=== PATIENT | male | born 1950 | race Caucasian/White ===

== ENCOUNTER 2024-12-23 04:37 | Inpatient (IN) | payer MEDICARE, BC, SELFPAY ==
[2024-12-22 23:39] VITALS: BMI 31.8
[2024-12-22 23:40] VITALS: BP 141/78
[2024-12-22 23:48] VITALS: BP 141/78
[2024-12-22 23:56] LABS: Glucose - Point of Care 118 mg/dl (70-99)
[2024-12-23] VITALS (21 sets, daily range): BP systolic 108–151; BP diastolic 60–88; PULSE 81–85; O2SAT 95; BMI 30.7
--- NOTE | 2024-12-23 00:05 | ED.GENMED ---
History of Present Illness
General
Chief Complaint: Blood Sugar Problem
Source: patient
Time Seen by Provider: 12/23/24 00:02
Nursing documentation reviewed up to this point in time: agreed with
History of Present Illness
History of Present Illness:
Note:
CHIEF COMPLAINT(S)
Light-headedness and mild tremors, likely due to low blood sugar.
HISTORY OF PRESENT ILLNESS
The patient is a 74-year-old male with a history of diabetes who presented with complaints of feeling light-headed and experiencing mild tremors. The patient reported not eating as much as usual today, and earlier in the day, experienced diarrhea.
He attributed his symptoms to these factors. The patient did not find any issues with his insulin dosage and confirmed that he is only on oral diabetic medications, specifically glipizide and metformin. The patient also mentioned a significant
weight loss recently, going from 380 pounds to 231 pounds. He noted repeated instances of diarrhea following antibiotic administration intended to clear an infection ahead of an upcoming kidney surgery. He is scheduled to undergo surgery to address
a blockage caused by a hernia affecting one of his kidneys. The patient reported feeling fine at the time of the conversation aside from some residual light-headedness and tremors.
CHRONIC MEDICAL CONDITIONS SIGNIFICANTLY AFFECTING CARE
- Diabetes
- Kidney disorder due to a blockage caused by a hernia that she is due to have surgery in an outside hospital
SOCIAL HISTORY
The patient mentioned being active, as he spends time walking his dogs, which helps him manage leg swelling.
MEDICATIONS
- Glipizide
- Metformin
- Propranolol
- Pravastatin
PHYSICAL EXAM
- Nursing notes reviewed and vital signs reviewed.
PROBLEM LIST
Acute:
- Hypoglycemia with associated light-headedness and tremors
Chronic:
- Diabetes
- Kidney disorder secondary to blockage by hernia
PLAN
- Provide the patient with food, such as a turkey sandwich, to help manage hypoglycemic symptoms.
- Recheck blood sugar in one hour.
- Monitor for any worsening symptoms or new developments.
DIFFERENTIAL DIAGNOSIS
The Differential Diagnosis includes, in no particular order and is not limited to:
- Hypoglycemia
- Dehydration
- Peripheral vascular disease
- Electrolyte imbalance
- Renal impairment
- Medication side effects
- Infection
- Gastrointestinal disturbance
- Anemia
- Cardiac issues
Renal failure
CARE-UPDATE
12/23/24 - 01:40
The anion gap is within the normal range at 12. The BUN is significantly elevated at 94, and creatinine is 7.3, indicating poor renal function. Bicarbonate is low at 14, consistent with possible metabolic acidosis. Potassium is elevated at 5.9,
posing a risk for hyperkalemia-related complications.
Disposition:
SUMMARY OF ENCOUNTER
The 74-year-old male patient was found unresponsive at his apartment, presenting with light-headedness. He received D5 saline en route to the emergency department, which resulted in improved mental status. The patient has significant kidney disease
and is scheduled for surgery at [facility] for a 'blocked kidney due to a hernia'. He expressed uncertainty about the severity of his renal function impairment. A hemoglobin level of 8.0 was noted, suggesting anemia of chronic disease. The plan
is to admit the patient for hydration and management of hyperkalemia.
ASSESSMENT
The patient is suspected to have anemia of chronic disease related to his kidney condition and requires further management for hyperkalemia and hydration.
MANAGEMENT OF THE PATIENTS CARE WAS DISCUSSED WITH
Nephrology was consulted via [employer] to discuss the patients plan of care.
PLAN
The plan involves admitting the patient for hydration and treatment of hyperkalemia.
INDEPENDENT REVIEW OF LABS AND INTERPRETATION OF TESTS
My independent review of the hemoglobin level is 8.0, consistent with likely anemia of chronic disease.
MEDICAL DECISION MAKING
- Number and Complexity of Problems Addressed: Chronic conditions affecting care include diabetes and significant kidney disease. Differential Diagnosis: Hypoglycemia, Dehydration, Peripheral vascular disease, Electrolyte imbalance, Renal
impairment, Medication side effects, Infection, Gastrointestinal disturbance, Anemia, Cardiac issues.
- Data:
Category 1: My independent interpretation of the hemoglobin level indicates anemia of chronic disease.
Category 3: Discussion of management with the nephrology team via [employer].
DIAGNOSIS
Anemia of chronic disease (ICD-10: D63.8), Chronic kidney disease with hyperkalemia (ICD-10: N18.9, E87.5).
Review of Systems
Review of Systems
Allergies reviewed?: Yes
All Other Systems: ROS reviewed and negative except as documented in HPI and ROS
Constitutional: Reports fatigue and sleep disturbance
Cardiac: Reports syncope (possib;e); Denies chest pain
Neurological: Reports dizzy and weakness
Psychiatric: Reports anxiety
Phy Exam
General Physical Exam
General Presentation: well appearing and mild distress
General age: appears older than age
General Skin: warm
General Mental: alert
General Hydration: dry mucous membranes
Cardiovascular Exam
Cardiovascular Exam: regular rate/rhythm
Gastrointestinal Exam
Gastrointestinal Exam: normal bowel sounds and non tender
External Findings: nephrostomy drain
Neurological Exam
Neurological Exam: alert and oriented x3
Musculoskeletal Exam
Musculoskeletal Exam: full ROM
Skin Exam
Skin Exam: normal color and warm/dry
Psychiatric Exam
Psychiatric Exam: normal mood/affect and anxious
Course
Orders/Labs/Results
Orders:
Orders
12/23/24 00:11
Complete Blood Count/With Diff Urgent
Comprehensive Metabolic Panel Urgent
Hemoglobin A1c [Glycohemoglobin (HgbA1c)] Urgent
Manual Differential Urgent
Comment: ADD ON
12/23/24 01:39
0.9% Sodium Chloride 1000 ml [Nss] 1,000 ml IV BOLUS
12/23/24 01:40
0.9% Sodium Chloride 1000 ml [Nss] 1,000 ml IV BOLUS
12/23/24 03:07
Cardiac Monitoring- Treatment ONCE
Albuterol Sulfate [Ventolin Nebules] 10 mg INH R NOW STA
Bumetanide [Bumex] 1 mg IV NOW STA
Sodium Zirconium Cyclosilicate [Lokelma] 10 gram PO NOW STA
12/23/24 03:23
Electrocardiogram (*1) Urgent
Reason for Study: QTc Monitoring
EKG- Treatment ONCE
12/23/24 03:29
Type And Crossmatch [Type+Screen] Urgent
12/23/24 03:56
Intake/ Output As Directed
Frequency: Per unit guidelines
Comment: strict intake and output monitoring
Weight As Directed
Frequency: Daily
12/23/24 03:58
CT Abd/pel Without Iv Or Oral Urgent
Comment:
Reason For Exam: MELANIE, Hyperkalemia
12/23/24 04:22
Admit/Transfer Patient As Directed
Co-Sign Provider:
Level of Care: Inpatient admission
Assign to:: IMU- Intermediate Care
Physician / Group: Abhishek
Diagnosis: MELANIE, Hyperkalemia, Hypoglycemia
Reason for Hospitalization: MELANIE, Hyperkalemia, Hypoglycemia
Expected length of stay greater than two midnights?: Yes
ELOS- Estimated Length of Stay in days: 4
I certify the patient meets the requirements for IP care: Yes
PRN Pain Medication Management As Directed
May give lesser potent ordered pain med per pt: Yes
preference::
Protocol:: Medication orders for pain may be administered in a
manner that supports deferring to patient preference
when the pt is:
- Requesting an ordered lesser potent pain medication.
Least to most potent pain medications are defined
as: acetaminophen < NSAID < tramadol < opioids
(morphine, oxycodone, hydromorphone).
- Requesting a lesser dose of the same medication IF
ORDERED.
- Requesting a less intrusive route of administration
if both routes are prescribed by the provider (PO <
IV).
12/23/24 04:23
ABO2 Routine
BBK Wristband Number:
Associate notified that ABO2 has been ordered: [id number]
Date: 12/23/24
Time: 04:17
Log Raft Worker ID: [id number]
Code Status As Directed
Resuscitation Status: Full Code
12/23/24 05:43
Urinalysis Reflex To Culture Urgent
Date Specimen was Collected: 12/23/24
Time Specimen was Collected: 05:42
12/23/24 Breakfast
Clear Liquid
12/23/24 06:09
Acetaminophen [Tylenol] 650 mg PO Q4HPRN PRN
Dextrose 5%/Water 1000 ml [D5w] 1,000 ml Sodium Bicarbonate 150 meq IV 100 mls/hr
Dextrose 50%-Water [Dextrose 50% Syringe] 12.5 grams IV [id number] PRN
Glucagon [GlucaGen] 1 mg IM PRN PRN
12/23/24 06:09
Consult Notification Routine
Specialty to Notify: Nephrology
NEPHROLOGY CONSULT Routine
Consulting Provider: Edward Conner
Was physician already notified: No
Reason for consult: MELANIE, Hyperkalemia
B12 [Vitamin B12] Routine
Folate Routine
Iron Routine
TSH Reflex To Free T4 Routine
Total Iron Binding Routine
Activity As Directed
Activity Level: Ambulate
With Assistance
Bedside Glucose Monitoring As Directed
Frequency: AC&HS
Additional Instructions:: Change to q6h if pt on TPN, tube feeding or not eating
Bladder Scan As Directed
Follow Bladder Retention/Intermittent Cath Algorithm?: Yes
PRN if no void in __ hours: 6
Frequency: Per Retention Algorithm
If Bladder Scan Result >: 400
then:: Straight cath
Drains- Urinary As Directed
Type: Nephrostomy
Location: L Flank
EKG with chest pain [ECG as needed] As Directed
ECG as needed for:: Chest Pain
Hemetest Stools As Directed
I/O [Intake/ Output] As Directed
Frequency: Per unit guidelines
Records Request [Obtain Records] As Directed
Dates of Information to be Released: Most Recent
Type of Information Requested: Entire Record
Obtain Records from: [facility]
Straight Cath As Directed
Frequency: Per Retention Algorithm
Additional Instructions: straight cath as needed per acute urinary retention algorithm for 24 hrs
Additional Instructions: for bladder scan greater than 400 mL
Vital Signs As Directed
Frequency: Per unit guidelines
Weight As Directed
Frequency: Daily
Cpap [RESP] Routine
Patient to use own unit?: No
Set Pressure (cm H2O): 8
Instructions: HS and PRN. Titrate for comfort (patient does not know home settings).
Ot Eval And Treat Routine
PT Consult [Pt Eval And Treat] Routine
Activity Level: Ambulate
With Assistance
DX Deep Vein Thrombosis Video Routine
12/23/24 07:30
Insulin Aspart Corrective Low [Novolog Flexpen-Low Resistance] See Protocol SC AC
12/23/24 07:39
Potassium Urgent
Comment: draw 4 hours after bumetanide administered
12/23/24 08:00
Amlodipine [Norvasc] 5 mg PO BID
Aspirin Chewable [Low Strength Aspirin] 81 mg PO DAILY
Carvedilol [Coreg] 25 mg PO BID
Cholecalciferol (Vitamin D3) [VITAMIN D3 (cholecalciferol)] 25 mcg PO DAILY
Clonidine [Catapres] 0.2 mg PO BID
Heparin 5,000 units SC Q12
Rosuvastatin Calcium [Crestor] 20 mg PO DAILY
12/24/24 06:00
EKG [Electrocardiogram (*1)] IN AM
Reason for Study: Chest Pain
Basic Metabolic Panel IN AM
Complete Blood Count/With Diff IN AM
Magnesium IN AM
Phosphorus IN AM
Abnormal Lab Results
12/22/24 12/23/24 12/23/24
23:54 00:11 01:52
WBC 27.0 H 10^3/uL
(4.8-10.8)
RBC 2.56 L 10^6/uL
(4.70-6.10)
Hgb 8.0 L g/dL
(13.0-18.0)
Hct 23.3 L %
(39.0-52.0)
MCH 31.3 H pg
(27.0-31.0)
RDW 14.8 H %
(11.5-14.5)
Abs Neuts (Manual) 7.8 H 10^3/uL
(1.4-6.5)
Segmented Neutrophils 29 L %
(42-75)
Lymphocytes (Manual) 69 H %
(20-51)
Monocytes (Manual) 1 L %
(2-9)
Potassium 5.9 H mmol/L
(3.5-5.1)
Chloride 113 H mmol/L
(98-107)
Carbon Dioxide 14 L* mmol/L
(22-30)
BUN 94 H mg/dl
(9-20)
Creatinine 7.3 H* mg/dL
(0.7-1.3)
Glucose 118 H mg/dl
(70-99)
POC Glucose 118 H mg/dl 68 L mg/dl
(70-99) (70-99)
12/23/24 00:11
12/23/24 00:11
Vital Signs
Initial and Last Documented VS:
Initial Vital Signs
Pulse Resp BP Pulse Ox
81 18 141/78 98
12/22/24 23:40 12/22/24 23:40 12/22/24 23:40 12/22/24 23:40
Last Documented Vital Signs
Temp Pulse Resp BP Pulse Ox
97.6 F 72 20 128/69 98
12/23/24 06:23 12/23/24 05:45 12/23/24 05:45 12/23/24 05:00 12/23/24 00:05
*Pulse Oximetry
SaO2: 98
Oxygen Mode of Delivery: Room air
Patient hypoxic: no
*Critical Care Note
Total Time (30-74mins, 75-104mins- exclusive of procedures): 35 (Critical care statement: A total of 35 minutes of critical care time was provided for this patient. This time is separate from time utilized to perform the aforementioned documented
procedures. Aggregate critical care time includes only time during which I was engaged in work directl)
ED Attending Note
-
Portions of this chart may have been created with voice recognition software.� Occasional wrong word or��sound alike� substitutions may have occurred due to the inherent limitations of voice recognition software.
Discharge Plan
Departure
Patient Disposition: Admit
Date of Disposition: 12/23/24
Time of Disposition: 03:15
Admit to: Telemetry
Presentation/result/management discussed w/ accepting MD/DO: Hospitalist
Discharge Problem:
Hypoglycemia, Acute hyperkalemia, Acute renal failure, Anemia, Medically noncompliant
Interventions
Interventions:
*Risk Screen - Suicide Last Done: 12/22/24 23:40
*General Assessment Last Done: 12/22/24 23:40
*Neglect/Abuse Screening Last Done: 12/22/24 23:40
*ED- Fall Risk Assessment Last Done: 12/22/24 23:40
*ED COVID-19 Vaccine History Last Done: 12/22/24 23:40
*Nursing Disposition Last Done: 12/23/24 06:15
ED- Neurological Assessment Last Done: 12/23/24 00:26
[2024-12-23 01:00] LABS: ALT (SGPT) 25 U/L (0-50); AST (SGOT) 21 U/L (17-59); Albumin 4.0 g/dl (3.5-5.0); Alkaline Phosphatase 76 U/L (38-126); Blood Urea Nitrogen 94 mg/dl (9-20); Calcium 9.3 mg/dl (8.4-10.2); Carbon Dioxide 14 mmol/L (22-30); Chloride 113 mmol/L (98-107); Estimated Creatinine Clearance 12 ml/min; Glucose 118 mg/dl (70-99); Potassium 5.9 mmol/L (3.5-5.1); Sodium 139 mmol/L (135-145); Total Protein 6.4 g/dl (6.3-8.2); eGFR 7.36
[2024-12-23] MEDS: NSS 1000 IV (01:49)
[2024-12-23 01:54] LABS: Glucose - Point of Care 68 mg/dl (70-99)
[2024-12-23 02:09] LABS: Hematocrit 23.3 % (39.0-52.0); Hemoglobin 8.0 g/dL (13.0-18.0); Mean Corp Hgb Conc. 34.3 g/dL (33.0-37.0); Mean Corpuscular Volume 91.0 fL (80.0-94.0); Platelet Count 205 10^3/uL (130-400); Red Cell Dist. Width 14.8 % (11.5-14.5)
[2024-12-23] MEDS: BUMEX 1 MG IV (03:30)
[2024-12-23] MEDS: VENTOLIN NEBULES 10 MG INH (03:31)
[2024-12-23] MEDS: LOKELMA 10 GRAM PO ×3 (03:31→17:57)
[2024-12-23 05:34] LABS: Absolute Neutrophils -Man Diff 7.8 10^3/uL (1.4-6.5); Macrocytosis 1+; Normal RBC Morphology No; Platelets Checked Yes; Total Cells Counted 100
[2024-12-23 05:42] LABS: Glucose - Point of Care 34 mg/dl (70-99)
[2024-12-23] MEDS: DEXTROSE 50% SYRINGE 25 GRAMS IV (05:45)
[2024-12-23 05:55] LABS: Glucose - Point of Care 134 mg/dl (70-99)
[2024-12-23 06:13] LABS: Urine Character Slightly Cloudy (Clear)
[2024-12-23 06:25] LABS: Urine White Cell 50-60 /HPF (0-5)
--- NOTE | 2024-12-23 06:32 | PTCARENOTE ---
received pt from ED at 0605. Pt aaox2, unable to recall the year. VSS. NSR on monitor. Wounds cleaned/dressed. CHG wipes done. Admission questions completed. Pt assessed and oriented to room/surroundings. Call mahan and belongings within reach. Care
ongoing
--- NOTE | 2024-12-23 06:34 | HPS.HSE ---
Family Physician
-
Family Physician: NOT KNOW UNKNOWN - PT DOES
Chief Complaint
-
Weakness
History of Present Illness
Patient is a 74y M with PMH significant for CKD, obstructive uropathy, DM-II and hypertension who presents to ED complaining of weakness. Patient states that he was feeling well for most of the day. This evening he sat down and started to feel
weak / fatigued. He was unable to get up from his chair and called his family. 911 was called and he was brought to the ED for further evaluation. Patient was found to be sluggish and poorly responsive by EMS. He was reportedly noted to be
hypoglycemic (? EMS value) and received dextrose en route to the ED. On initial evaluation here, his glucose was 118 - but declined again to 68 and then 34, requiring additional dextrose supplementation.
Patient is awake and alert in the ED.
He denies any pain. He states that he has been compliant with his usual medications and has a complete list with him.
He is typically followed at [facility] as well as [facility].
He states that he has a non-functioning R kidney and an obstructed L kidney (? due to a hernia?). He currently has a L PCN in place and is scheduled for more definitive surgery at [facility] in the coming weeks.
Patient notes that he has been on antibiotics recently (completed a course of Bactrim last week according to his med list).
Medical History
Past Medical History
Past Medical History: Reports Other
Additional Past Medical History:
DM-II
Hypertension
CKD - ? Stage
Obstructive Uropathy
Obesity
Past Surgical History: Reports Other
Additional Past Surgical History:
Left Percutaneous Nephrostomy
T&A
Social History
Tobacco: Non-smoker
Alcohol: None
Drug: None
Family History
Family History: Not pertinent
Allergies / Home Medications
Allergies reflects when Allergies were last updated in [employer].
Home Medications with original date entered in [employer]
Allergy/Medication List:
Allergies
Allergy/AdvReac Type Severity Reaction Status Date / Time
No Known Allergies Allergy Unverified 06/15/22 16:38
Home Medications
amlodipine 5 mg tablet 5 mg PO BID 12/23/24
aspirin 81 mg chewable tablet 81 mg PO DAILY 12/23/24
carvedilol 25 mg tablet 25 mg PO BID 12/23/24
cholecalciferol (vitamin D3) 25 mcg (1,000 unit) tablet 25 mcg PO DAILY 12/23/24
clonidine HCl 0.2 mg tablet 0.2 mg PO BID 12/23/24
glimepiride 2 mg tablet 3 mg PO DAILY 12/23/24
omega [id number]-fish oil 1,200 mg (144 mg-216 mg) capsule (Fish Oil) 1 cap PO BID 12/23/24
rosuvastatin 20 mg tablet 20 mg PO DAILY 12/23/24
spironolactone 25 mg tablet 25 mg PO DAILY 12/23/24
Review of Systems
-
History Source: Patient
A 12 point ROS was completed and negative except as noted: Yes
Constitutional: Reports Fatigue; Denies Fever or Chills
EENT: Denies Sore Throat
Respiratory: Denies Cough or Trouble Breathing
Cardiac: Denies Chest Pain or Palpitations
Abdomen/GI: Reports Diarrhea; Denies Abdominal Pain, Nausea, Vomiting, Bloody Stools or Black Stools
: Denies Flank Pain or Bleeding
Neurological: Denies Headache
Psych: Denies Depression or Anxiety
Physical Exam
Vital Signs
Vital Signs
Temp Pulse Resp BP Pulse Ox
97.6 F 72 20 128/69 98
12/23/24 06:23 12/23/24 05:45 12/23/24 05:45 12/23/24 05:00 12/23/24 00:05
Physical Exam
General: Other (74y M in no acute distress.)
HEENT: Moist mucous membranes and PERRLA
Respiratory: Clear; No Wheezes, Rales or Rhonchi
Cardiac: S1/S2 and Regular Rhythm; No Murmur
GI: Non Tender, Non Distended, Normal Bowel Sounds and Other (Obese)
Genito-urinary: Other (L PCN in place. No significant erythema, bleeding, discharge at site. Light yellow urine in device. Pos scrotal edema.)
Musculoskeletal: No Clubbing, No Cyanosis and Other (Trace - 1+ edema b/l LEs.)
Neuro: AO x 3
Laboratory Results
-
12/23/24 00:11
Laboratory Results
Total Bilirubin 0.5 mg/dl (0.2-1.3) 12/23/24 00:11
AST 21 U/L (17-59) 12/23/24 00:11
ALT 25 U/L (0-50) 12/23/24 00:11
Alkaline Phosphatase 76 U/L (38-126) 12/23/24 00:11
Impression/Plan
-
A/P: Patient is a 74y M with PMH significant for HTN, DM-II and CKD who presents to ED for evaluation of weakness / unresponsiveness.
DM-II with Hypoglycemia
Weakness / Unresponsiveness secondary to the above
- Admit for further evaluation and treatment.
- Persistent / recurrent hypoglycemia noted in the ED.
- Likely combination of long-acting sulfonylurea and poor renal function.
- Hold / discontinue glimepiride.
- Continue supplemental dextrose in IVs.
- Follow for stability in blood glucose.
- Update A1C.
- Adjust chronic regimen for control without hypoglycemia.
MELANIE on CKD
Hyperkalemia
Metabolic Acidosis
Obstructive Uropathy
- Unclear to what degree these issues are acute / chronic, but suspect degree of acuity given his presentation.
- L PCN in place and appears to be draining well.
- SCr = 7.3 with unknown baseline. K = 5.9 (temporizing measures administered in the ED).
- IVFs with supplemental dextrose and bicarb.
- Hold spironolactone.
- Follow urine output.
- Monitor for changes in labs / lytes / etc.
- CT A/P ordered to evaluate obstructive uropathy.
- Send to [facility] and [facility] for records for review / comparison.
- Acute component of renal impairment may be due to Bactrim, volume losses, etc.
- Nephrology evaluation for additional recommendations.
UTI
- Patient with leukocytosis of 27 and UA consistent with possible infection (with PCN / device in place).
- IV abx with ceftriaxone for now pending culture data.
- Check CDiff given patient report of recent diarrhea after abx (Bactrim).
- Follow temperature curve. Monitor for any new / focal symptoms.
- Follow-up CT findings.
Normocytic Anemia
- Unknown acuity / chronicity. Patient denies any gross / evident blood loss, so likely chronic disease anemia.
- Check iron studies. Follow-up outside records as noted above.
- Follow H&H for changes.
Benign Hypertension
- Stable. Continue outpatient med regimen with holding parameters.
- Hold spironolactone given hyperkalemia +/- MELANIE.
DVT Prophylaxis: Subcut heparin
Code Status: Full
[2024-12-23] MEDS: SODIUM BICARBONATE 1150 MEQ IV ×2 (06:41→17:56)
[2024-12-23 07:32] LABS: Glycohemoglobin (HgbA1c) 6.7 % (4.0-5.6)
[2024-12-23 07:59] LABS: Glucose - Point of Care 31 mg/dl (70-99)
--- NOTE | 2024-12-23 08:00 | PTCARENOTE ---
Received patient from night warehouse manager RN. Assessment completed and documented in shift assessment.
Patient here with significant electrolyte abnormalities. Hyperkalemic, hypoglycemic and with MELANIE on admission. This AM, L FA IV site puffy/sluggish. New IV placement with VAT RN assistance.
Hypoglycemic to 30's, asymptomatic. Hypoglycemic protocol followed with administration of IV dextrose after failed recovery x 2. Glucose improved to 130. Awaiting evaluation by nephrology and hospitalist. L Nephrostomy Tube draining clear/yellow
straw urine. AAOx2-3, pleasant and cooperative.
[2024-12-23 08:13] LABS: Glucose - Point of Care 35 mg/dl (70-99)
[2024-12-23 08:31] LABS: Glucose - Point of Care 49 mg/dl (70-99)
[2024-12-23] MEDS: DEXTROSE 50% SYRINGE 12.5 GRAMS IV ×3 (08:40→20:12)
[2024-12-23] MEDS: CATAPRES 0.2 MG PO ×2 (08:41→20:20)
[2024-12-23] MEDS: VITAMIN D3 (cholecalciferol) 25 MCG PO (08:41)
[2024-12-23] MEDS: NORVASC 5 MG PO ×2 (08:41→20:20)
[2024-12-23] MEDS: CRESTOR 20 MG PO (08:41)
[2024-12-23] MEDS: LOW STRENGTH ASPIRIN 81 MG PO (08:41)
[2024-12-23] MEDS: ROCEPHIN 1000 MG IV (08:42)
[2024-12-23] MEDS: COREG 25 MG PO ×2 (08:42→20:20)
[2024-12-23] MEDS: HEPARIN 5000 UNITS SC ×2 (08:42→20:20)
[2024-12-23] MEDS: STERILE WATER FOR INJECTION 10 ML IV (08:42)
--- NOTE | 2024-12-23 08:43 | W.PN.HOSP.TC ---
Today's Communication/Plan
-
see bold
Assessment / Plan
Assessment / Plan
74y M with PMH significant for HTN, DM-II and CKD who presents to ED for evaluation of weakness / unresponsiveness.
DM-II with Hypoglycemia
Weakness / Unresponsiveness secondary to the above
- A1C 6.7. Due to taking glimepiride with worsening renal function
- Change clear liquid diet to low potassium diet
- Recommend permanently discontinue glimepiride, continue Accu-Cheks, sliding scale insulin
MELANIE on CKD
Hyperkalemia
Metabolic Acidosis
Obstructive Uropathy
- Creatinine upon admission is 7.3, baseline creatinine 1.6 on 12/03/2024
- L PCN in place and appears to be draining well.
- Appreciate nephrology input, continue sodium bicarb IV fluids, no need for dialysis currently
- Start Lokelma scheduled, hold spironolactone
- Follow-up CT A/P ordered to evaluate obstructive uropathy
- Trend creatinine, trend daily weights, no nephrotoxic drugs/NSAID
Complicated UTI
- Patient with leukocytosis of 27 and UA consistent with possible infection (with PCN / device in place).
- Continue IV Rocephin, follow-up on urine cultures
- Start oral vancomycin for C. difficile prophylaxis
Normocytic Anemia
- Iron studies reviewed, likely from anemia of chronic disease
- Trend hemoglobin, transfuse for hemoglobin less than 7.0
Benign Hypertension
- Continue Coreg 25 mg twice a day, clonidine 0.2 mg twice a day, amlodipine 5 mg twice a day,
- Hold spironolactone given hyperkalemia/ MELANIE.
Coronary artery disease
- Continue aspirin, statin, beta-imtiaz
Obesity due to excess calories
- Affects all aspects of care
Obstructive sleep apnea
Prostate cancer
Gout
DVT Prophylaxis: Subcut heparin
Code Status: Full
Total time spent to see the patient on the floor, examine the patient, review data and lab results, discuss treatment plan with patient, nursing staff around 51 minutes.
Physical Exam
General: Obese, no acute distress
HEENT: Normocephalic, Atraumatic, EOMI, MMM
Respiratory: Clear to Auscultation bilaterally
Cardiac: Normal S1/S2, Regular Rate and Rhythm
GI: Soft, Nontender, Nondistended, Normal Bowel Sounds
: L PCN tube w/ clear yellow urine
Extremities: No Clubbing, Cyanosis, or Edema
Neuro: Nonfocal/Grossly Intact
Anticipated Discharge: > 48 hours
Subjective/Interval History
-
Date of Service: December 23, 2024
Patient denies pain. No nausea, no vomiting. No fever. Reports he is eating fine.
Objective Data
-
Labs:
Laboratory Results
12/23/24 12/23/24
00:11 08:26
WBC 27.0 H
Hgb 8.0 L
Hct 23.3 L
Plt Count 205
Sodium 139
Potassium 5.9 H Pending
Chloride 113 H
Carbon Dioxide 14 L*
BUN 94 H
Creatinine 7.3 H*
Glucose 118 H
Calcium 9.3
Total Bilirubin 0.5
AST 21
ALT 25
Alkaline Phosphatase 76
Vital Signs:
Vital Signs
Temp Pulse Resp BP Pulse Ox
97.5 F 72 19 135/73 97
12/23/24 07:34 12/23/24 07:30 12/23/24 07:30 12/23/24 06:25 12/23/24 07:30
[2024-12-23 08:47] LABS: Potassium 5.4 mmol/L (3.5-5.1)
[2024-12-23 09:01] LABS: Iron 126 ug/dl (49-181)
[2024-12-23 09:07] LABS: Glucose - Point of Care 130 mg/dl (70-99)
[2024-12-23 09:11] LABS: Total Iron Binding Capacity 262 ug/dl (261-462)
[2024-12-23 10:07] LABS: Folate 5.5 ng/ml (2.76-20); Vitamin B12 840 pg/ml (239-931)
[2024-12-23 11:20] LABS: Glucose - Point of Care 175 mg/dl (70-99)
--- NOTE | 2024-12-23 11:27 | W.CON.NEPH ---
Consultation
-
Date/Time Consultation Requested: December 23, 2024 at 6:30 AM
Date/Time Consultation Performed: December 23, 2024 at 10 AM
Requesting Provider: Abhishek
Performing Provider: Dr. Elias
Medical History
-
Chief Complaint: Weakness acute kidney
History of Present Illness:
74y M with PMH significant for CKD, obstructive uropathy, DM-II and hypertension who presents to ED complaining of weakness. Patient states that he was feeling well for most of the day. He was unable to get up from his chair and called his
family. 911 was called and he was brought to the ED for further evaluation. Patient was found to be sluggish and poorly responsive by EMS. He was reportedly noted to be hypoglycemic (? EMS value) and received dextrose en route to the ED.
He is typically followed at [facility] as well as [place].
He states that he has a non-functioning R kidney and an obstructed L kidney due to a hernia. He currently has a L PCN in place and is scheduled for more definitive surgery at [facility] in the coming weeks.
Patient notes that he has been on antibiotics recently (completed a course of Bactrim last week according to his med list).
Reviewed records from [facility] he had a creatinine of 1.6 on December 03, 2024 on discharge. The nephrostomy tube was placed on that admission and he had acute kidney injury with a creatinine above 3 at the time.
Renal consult for acute kidney injury and metabolic acidosis creatinine of 7
Past Medical History
PMH significant for CKD, obstructive uropathy, DM-II and hypertension, left nephrostomy tube
Social History
Tobacco: Non-Smoker
Alcohol: None
Allergies / Home Medications
Allergy/AdvReac Type Severity Reaction Status Date / Time
No Known Allergies Allergy Unverified 06/15/22 16:38
�Medication �Instructions �Recorded �Confirmed �Type
amlodipine 5 mg tablet 5 mg PO BID 12/23/24 12/23/24 History
aspirin 81 mg chewable tablet 81 mg PO DAILY 12/23/24 12/23/24 History
carvedilol 25 mg tablet 25 mg PO BID 12/23/24 12/23/24 History
cholecalciferol (vitamin D3) 25 25 mcg PO DAILY 12/23/24 12/23/24 History
mcg (1,000 unit) tablet
clonidine HCl 0.2 mg tablet 0.2 mg PO BID 12/23/24 12/23/24 History
glimepiride 2 mg tablet 3 mg PO DAILY 12/23/24 12/23/24 History
omega 5-mup-lnk-fish oil 1,200 mg 1 cap PO BID 12/23/24 12/23/24 History
(144 mg-216 mg) capsule (Fish Oil)
rosuvastatin 20 mg tablet 20 mg PO DAILY 12/23/24 12/23/24 History
spironolactone 25 mg tablet 25 mg PO DAILY 12/23/24 12/23/24 History
Review of Systems
-
Generalized weakness no chest pain or shortness of breath
All other systems: Negative unless noted
Physical Exam
Vital Signs
Vital Signs
Temp Pulse Resp BP Pulse Ox
97.8 F 80 16 151/88 97
12/23/24 10:33 12/23/24 10:45 12/23/24 10:31 12/23/24 10:45 12/23/24 10:45
Lab Results
WBC 27.0 10^3/uL (4.8-10.8) H 12/23/24 00:11
RBC 2.56 10^6/uL (4.70-6.10) L 12/23/24 00:11
Hgb 8.0 g/dL (13.0-18.0) L 12/23/24 00:11
Hct 23.3 % (39.0-52.0) L 12/23/24 00:11
Plt Count 205 10^3/uL (130-400) 12/23/24 00:11
eGFR 7.36 12/23/24 00:11
Physical Exam
General no acute distress
HEENT no cephalic atraumatic extraocular muscle intact no scleral icterus no JVD neck supple
lungs clear to auscultation bilateral
heart regular S1-S2 positive
abdomen soft nontender positive bowel sounds, left nephrostomy tube cloudy drain
extremities no edema pulses present bilateral
Neurologically nonfocal alert and oriented x 3
Skin no lesions no abrasions no petechiae
Psych normal affect no bizarre behavior
Data Reviewed
-
Labs: Labs Reviewed by me, Discussed with Physician and Discussed with Patient
Assessment/Plan
-
74y M with PMH significant for CKD, obstructive uropathy, DM-II and hypertension who presents to ED complaining of weakness. He was reportedly noted to be hypoglycemic and received dextrose en route to the ED.
He is typically followed at [facility] as well as [place].
He currently has a L PCN in place and is scheduled for more definitive surgery at [facility] in the coming weeks.
Patient notes that he has been on antibiotics recently (completed a course of Bactrim last week according to his med list).
Reviewed records from [facility] he had a creatinine of 1.6 on December 03, 2024 on discharge. The nephrostomy tube was placed on that admission and he had acute kidney injury with a creatinine above 3 at the time. Atrophic R kidney and an
obstructed L kidney due to a hernia.
Patient was tested for C. difficile at [facility] which was negative but he was placed on prophylactic C. difficile while on antibiotic at [facility]
Renal consult for acute kidney injury and metabolic acidosis creatinine of 7
Impression.
Acute kidney injury with a creatinine of 7.3 from 1.6 in December 03, 2024.
Hyperkalemia potassium 5.9.
Acute metabolic acidosis bicarbonate 14.
Chronic left nephrostomy tube draining.
Leukocytosis 12,000.
Diabetes.
Plan.
Continue IV bicarbonate
Stat labs ordered
CT scan pending rule out obstruction although patient is nonoliguric
Urinalysis indicates UTI on antibiotic
No acute need for dialysis at this time from a uremic or electrolyte standpoint pending repeat blood work

33 minutes critical care time spent on patient case reviewing records discussion with physicians etc.
[2024-12-23 12:07] LABS: ALT (SGPT) 21 U/L (0-50); AST (SGOT) 19 U/L (17-59); Albumin 3.5 g/dl (3.5-5.0); Alkaline Phosphatase 64 U/L (38-126); Blood Urea Nitrogen 88 mg/dl (9-20); Calcium 8.5 mg/dl (8.4-10.2); Carbon Dioxide 15 mmol/L (22-30); Chloride 111 mmol/L (98-107); Estimated Creatinine Clearance 13 ml/min; Glucose 148 mg/dl (70-99); Potassium 5.7 mmol/L (3.5-5.1); Sodium 135 mmol/L (135-145); Total Protein 5.9 g/dl (6.3-8.2); eGFR 8.31
--- NOTE | 2024-12-23 17:06 | CM ---
Patient with Hx nephrostomy tube with Dx DM-II with Hypoglycemia Weakness / Unresponsiveness, MELANIE, Complicated UTI. Room air. Receiving IV Abx, IV Bicarb. PT & OT recommends HH. Per nurse; forgetful.
Spoke with patient's daughter Tabitha, who lives in [place];
the patient resides alone in a one story house with 4 outside steps and 4 steps up to bedroom/bath.
Daughter expressing concern patient has been forgetful at times at home, not eating well, mixed up about the day of the week/date and taking his meds.
He was independent in ADLs and ambulation using his RW.
He has Meals on Wheels in place but is not eating well.
DME - RW, SPC, glucometer, BP cuff, CPAP
Current with [facility] for nurse & MI
SNF - none
PCP - Isma[facility] Millan
Pharmacy - [facility]
Daughter Tabitha comes down from [place] to take him to medical appts.
Daughter called [facility] for resources about Penitentiary facilitiess and they provided a list of facilities (she is unsure if assisted living or other). She does not think patient is ready to make that decision to move to Independent or Assisted
Living. He is a very private person and has resisted help at home. Discussed hiring help at home due to forgetfulness. He does not have a POA and hasn't disclosed his assets to daughter. The other daughter Carisa lives in [facility] does not
help at all with his care. Daughter would like caregiver list sent to [email or web address].
Referral to [facility].
Plan home with resumption [facility], with caregiver list.
[2024-12-23 17:15] LABS: Glucose - Point of Care 40 mg/dl (70-99)
[2024-12-23 17:34] LABS: Glucose - Point of Care 42 mg/dl (70-99)
[2024-12-23] MEDS: FIRVANQ 125 MG PO (17:57)
[2024-12-23 18:06] LABS: Glucose - Point of Care 99 mg/dl (70-99)
[2024-12-23 20:17] LABS: Glucose - Point of Care 65 mg/dl (70-99)
[2024-12-23 20:44] LABS: Glucose - Point of Care 99 mg/dl (70-99)
[2024-12-23 22:42] LABS: Glucose - Point of Care 86 mg/dl (70-99)
[2024-12-24] VITALS (17 sets, daily range): BP systolic 113–146; BP diastolic 55–82; PULSE 69–88; O2SAT 69–95; BMI 31.0
[2024-12-24] MEDS: DEXTROSE 50% SYRINGE 12.5 GRAMS IV ×5 (00:24→05:49)
[2024-12-24 00:32] LABS: Glucose - Point of Care 46 mg/dl (70-99)
[2024-12-24 00:53] LABS: Glucose - Point of Care 73 mg/dl (70-99)
[2024-12-24 03:33] LABS: Glucose - Point of Care 54 mg/dl (70-99)
[2024-12-24 03:41] LABS: Hematocrit 22.3 % (39.0-52.0); Hemoglobin 7.4 g/dL (13.0-18.0); Mean Corp Hgb Conc. 33.2 g/dL (33.0-37.0); Mean Corpuscular Volume 91.4 fL (80.0-94.0); Platelet Count 196 10^3/uL (130-400); Red Cell Dist. Width 14.7 % (11.5-14.5)
[2024-12-24 03:57] LABS: Glucose - Point of Care 74 mg/dl (70-99)
[2024-12-24 04:00] LABS: Blood Urea Nitrogen 85 mg/dl (9-20); Calcium 8.8 mg/dl (8.4-10.2); Carbon Dioxide 19 mmol/L (22-30); Chloride 109 mmol/L (98-107); Estimated Creatinine Clearance 14 ml/min; Glucose < 30 mg/dl (70-99); Magnesium 2.0 mg/dl (1.6-2.3); Potassium 5.0 mmol/L (3.5-5.1); Sodium 136 mmol/L (135-145); eGFR 8.78
--- NOTE | 2024-12-24 04:08 | PTCARENOTE ---
Patient continues to have hypoglycemia episodes; refer to hypoglycemic worklist. Patient has received IV dextrose multiple times. Covering MOBILE DESIGNER [employer] was made aware of this. Patient is asymptomatic. IVF changed to D10W w/ sodium bicarb; refer to
AUG.
[2024-12-24] MEDS: SODIUM BICARBONATE 1150 MEQ IV (04:39)
--- NOTE | 2024-12-24 04:55 | W.PN.UPDATE ---
Addendum entered and electronically signed by HAILEY Thompson 12/24/24 07:03:
Ladies Suit Operator Dr. Elias made aware.
Original Note:
Update Note
Progress Note Update
Low blood sugar overnight
65->46->73->29->34->54-> 74
12.5g along with apple juice given many times. Patient asymptomatic. D5W IV Fluids. Lab resulted. Will change D10W with NaBicarb.
BS 26 patient is diaphoretic and mumbling, Dextrose 25 g + Dextrose 12.5 given by RN.
Cortisol level stat.
BS 132 Advised to repeat the doses of dextrose+ Glucagon since patient blood sugar drops fast.
BS 189, hydrocortisone IV ordered.
stable VS otherwise
patient is more alert communicating.
--- NOTE | 2024-12-24 05:40 | PTCARENOTE ---
Patient's blood sugar 26 this morning. Patient symptomatic; drowsy, diaphoretic, restless, mumbling, confused. 25g plus another 12.5g IV dextrose given. Recheck blood sugar 132, symptoms have resolved, pt alert and able to state his name.
Diaphoresis continues. Orders for 1mg IV glucagon and another 25g IV dextrose per ADVERTISING MATERIAL DISTRIBUTOR [employer]. IVF increased to 150mL/hr; refer to MAR
Order to draw cortisol level then give IV hydrocortisone after then. Order to hold AM Coreg.
Report given to oncoming RN.
Patient has received a total of 125g IV dextrose overnight.
[2024-12-24] MEDS: DEXTROSE 50% SYRINGE 25 GRAMS IV ×2 (05:49→06:11)
[2024-12-24 05:51] LABS: Glucose - Point of Care 26 mg/dl (70-99)
[2024-12-24 06:13] LABS: Glucose - Point of Care 132 mg/dl (70-99)
[2024-12-24] MEDS: LOKELMA 10 GRAM PO ×3 (06:18→18:27)
[2024-12-24 06:46] LABS: Glucose - Point of Care 189 mg/dl (70-99)
[2024-12-24 06:51] LABS: Nucleated Red Blood Cells % 0 % (-)
[2024-12-24 07:20] LABS: Cortisol, Random 26.8 ug/dl
[2024-12-24] MEDS: SOLU-CORTEF 12.5 MG IV (07:33)
[2024-12-24] MEDS: ROCEPHIN 1000 MG IV (07:38)
[2024-12-24] MEDS: CRESTOR 20 MG PO (07:38)
[2024-12-24] MEDS: VITAMIN D3 (cholecalciferol) 25 MCG PO (07:38)
[2024-12-24] MEDS: LOW STRENGTH ASPIRIN 81 MG PO (07:38)
[2024-12-24] MEDS: CATAPRES 0.2 MG PO ×2 (07:38→20:04)
[2024-12-24] MEDS: STERILE WATER FOR INJECTION 10 ML IV (07:38)
[2024-12-24] MEDS: NORVASC 5 MG PO ×2 (07:38→20:04)
[2024-12-24] MEDS: FIRVANQ 125 MG PO (07:39)
[2024-12-24] MEDS: HEPARIN 5000 UNITS SC ×2 (07:39→20:04)
[2024-12-24 07:40] LABS: Glucose - Point of Care 147 mg/dl (70-99)
[2024-12-24 08:43] LABS: Glucose - Point of Care 115 mg/dl (70-99)
[2024-12-24 09:45] LABS: Glucose - Point of Care 123 mg/dl (70-99)
--- NOTE | 2024-12-24 09:55 | W.PN.HOSP.TC ---
Today's Communication/Plan
-
see bold
Assessment / Plan
Assessment / Plan
74y M with PMH significant for HTN, DM-II and CKD who presents to ED for evaluation of weakness / unresponsiveness.
DM-II with Hypoglycemia
Weakness / Unresponsiveness secondary to the above
- A1C 6.7. Due to taking glimepiride with worsening renal function
- Recommend permanently discontinue glimepiride
- Continue dextrose sodium bicarb IV fluids, continue Accu-Cheks, sliding scale insulin
MELANIE on CKD
Hyperkalemia
Metabolic Acidosis
Obstructive Uropathy
- Creatinine upon admission is 7.3, baseline creatinine 1.6 on 12/03/2024
- L PCN in place and appears to be draining well.
- Appreciate nephrology input, continue dextrose sodium bicarb IV fluids, no need for dialysis currently
- Hyperkalemia resolved, discontinue Lokelma, hold spironolactone
- CT abdomen and pelvis negative for left hydronephrosis
- Patient was supposed to have another surgery at [place] 01/12 this morning
- Trend creatinine, trend daily weights, no nephrotoxic drugs/NSAID
Urinary tract infection ruled out
- Patient has CLL, therefore he has a chronic leukocytosis. Urine culture show mixed guy, likely contamination
- Discontinue IV Rocephin
- Started oral vancomycin for C. difficile prophylaxis -continue for 3 more days
Normocytic Anemia
- Iron studies reviewed, likely from anemia of chronic disease
- Trend hemoglobin, transfuse for hemoglobin less than 7.0
Benign Hypertension
- Continue Coreg 25 mg twice a day, clonidine 0.2 mg twice a day, amlodipine 5 mg twice a day,
- Hold spironolactone given hyperkalemia/ MELANIE.
Coronary artery disease
- Continue aspirin, statin, beta-imtiaz
Obesity due to excess calories
- Affects all aspects of care
CLL
Prostate cancer
Obstructive sleep apnea
Gout
DVT Prophylaxis: Subcut heparin
Code Status: Full
Updated daughter on phone 12/24
Total time spent to see the patient on the floor, examine the patient, review data and lab results, discuss treatment plan with patient, nursing staff around 50 minutes.
Physical Exam
General: Obese, no acute distress
HEENT: Normocephalic, Atraumatic, EOMI, MMM
Respiratory: Clear to Auscultation bilaterally
Cardiac: Normal S1/S2, Regular Rate and Rhythm
GI: Soft, Nontender, Nondistended, Normal Bowel Sounds
: L PCN tube w/ clear yellow urine
Extremities: No Clubbing, Cyanosis, or Edema
Neuro: Nonfocal/Grossly Intact
Anticipated Discharge: > 48 hours
Subjective/Interval History
-
Date of Service: December 24, 2024
Patient denies lightheadedness or dizziness when his blood sugars run low. Reports eating and drinking fine. No nausea, no vomiting. No chest pain, no shortness of breath. No fever.
Objective Data
-
Labs:
Laboratory Results
12/24/24 12/24/24 12/24/24
03:04 08:42 09:42
WBC 21.4 H
Hgb 7.4 L
Hct 22.3 L
Plt Count 196
Sodium 136 Cancelled Pending
Potassium 5.0 Cancelled Pending
Chloride 109 H Cancelled Pending
Carbon Dioxide 19 L Cancelled Pending
BUN 85 H Cancelled Pending
Creatinine 6.3 H* Cancelled Pending
Glucose < 30 L* Cancelled Pending
Calcium 8.8 Cancelled Pending
Vital Signs:
Vital Signs
Temp Pulse Resp BP Pulse Ox
97.8 F 67 19 130/68 96
12/24/24 07:03 12/24/24 08:00 12/24/24 08:00 12/24/24 08:00 12/24/24 08:00
I&O
12/23/24 12/24/24 12/25/24
06:59 06:59 06:59
Intake Total 240 / 240
Output Total 2500 / 2500 550 / 550
Balance -2260 / -2260 -550 / -550
[2024-12-24 10:21] LABS: Blood Urea Nitrogen 83 mg/dl (9-20); Calcium 8.3 mg/dl (8.4-10.2); Carbon Dioxide 22 mmol/L (22-30); Chloride 107 mmol/L (98-107); Estimated Creatinine Clearance 14 ml/min; Glucose 110 mg/dl (70-99); Potassium 4.9 mmol/L (3.5-5.1); Sodium 134 mmol/L (135-145); eGFR 9.13
[2024-12-24 10:41] LABS: Glucose - Point of Care 170 mg/dl (70-99)
[2024-12-24] MEDS: D5/0.9% SODIUM CHLORIDE 1000 IV (12:06)
[2024-12-24 12:22] LABS: Glucose - Point of Care 282 mg/dl (70-99)
--- NOTE | 2024-12-24 12:32 | PN.CDI ---
CDI
- -
CDI:
Physician Documentation Request
Admit Date: 12/23/24 04:37
Dear Doctor,
Please review the following and provide your response in the progress notes.
Clinical Indicators:
Pt admitted with MELANIE on CKD
Documented per Nephrology consult,' Reviewed records from [facility] he had a creatinine of 1.6 on December 03, 2024 on discharge. ...'
Please provide the suspected stage of CKD:
Stages of Chronic Kidney Disease*
Level Description GFR
G1 Normal or High >90
G2 Mildly decreased 60-89
G3a Mildly to moderately decreased 45-59
G3b Moderately to severely decreased 30-44
G4 Severely decreased 15-29
G5 Kidney failure <15
Use of terms such as suspected, likely, concern for, or probable (associated with a specific diagnosis that is being evaluated, monitored, or treated as if it exists) are acceptable and can be coded in the inpatient setting, when documented at the
time of discharge.
Thank you,
Lala Mobley RN
CDI Specialist
[place] Text
Please use your independent medical judgment in providing your response.
*Source: Kidney Disease: Improving Global Outcomes (KDIGO) 2012
--- NOTE | 2024-12-24 12:44 | W.PN.NEPH.PH ---
Today's Communication / Plan
-
D5 normal saline
Assessment/Plan
-
74y M with PMH significant for CKD, obstructive uropathy, DM-II and hypertension who presents to ED complaining of weakness. He was reportedly noted to be hypoglycemic and received dextrose en route to the ED.
He is typically followed at [facility] as well as [place].
He currently has a L PCN in place and is scheduled for more definitive surgery at [facility] in the coming weeks.
Patient notes that he has been on antibiotics recently (completed a course of Bactrim last week according to his med list).
Reviewed records from [facility] he had a creatinine of 1.6 on December 03, 2024 on discharge. The nephrostomy tube was placed on that admission and he had acute kidney injury with a creatinine above 3 at the time. Atrophic R kidney and an
obstructed L kidney due to a hernia.
Patient was tested for C. difficile at [facility] which was negative but he was placed on prophylactic C. difficile while on antibiotic at [facility]
Renal consult for acute kidney injury and metabolic acidosis creatinine of 7
Impression.
Acute kidney injury with a creatinine of 7.3 from 1.6 in December 03, 2024.
Hyperkalemia potassium 5.9.
Acute metabolic acidosis bicarbonate 14.
Chronic left nephrostomy tube draining.
Leukocytosis 12,000.
Diabetes.
Plan.
CT scan no obstructive pathology
Urinalysis indicates UTI on antibiotic�pending culture
No acute need for dialysis at this time from a uremic or electrolyte standpoint pending repeat blood work
Changed IV fluids from D10 with bicarb to D5 normal saline
Patient had episodes of hypoglycemia which I suspect are from MELANIE and residual clearance of antiglycemic
Discussed with the medical nurse
Discussed with the patient regard to renal prognosis

33 minutes critical care time spent on patient case reviewing records discussion with physicians etc.
-
-
Date of Service: December 24, 2024
CC / HPI / ROS
-
Chief Complaint:
Acute kidney injury
History of Present Illness:
Acute kidney injury with metabolic acidosis with chronic left nephrostomy tube presents with hypoglycemia
Review of Systems:
No chest pain
Nonoliguric
Labs
-
Labs:
WBC 21.4 10^3/uL (4.8-10.8) H 12/24/24 03:04
RBC 2.44 10^6/uL (4.70-6.10) L 12/24/24 03:04
Hgb 7.4 g/dL (13.0-18.0) L 12/24/24 03:04
Hct 22.3 % (39.0-52.0) L 12/24/24 03:04
Plt Count 196 10^3/uL (130-400) 12/24/24 03:04
Sodium 134 mmol/L (135-145) L 12/24/24 09:42
Potassium 4.9 mmol/L (3.5-5.1) 12/24/24 09:42
Chloride 107 mmol/L (98-107) 12/24/24 09:42
Carbon Dioxide 22 mmol/L (22-30) 12/24/24 09:42
BUN 83 mg/dl (9-20) H 12/24/24 09:42
Creatinine 6.1 mg/dL (0.7-1.3) H* 12/24/24 09:42
eGFR 9.13 12/24/24 09:42
Glucose 110 mg/dl (70-99) H 12/24/24 09:42
Calcium 8.3 mg/dl (8.4-10.2) L 12/24/24 09:42
Phosphorus 6.1 mg/dl (2.5-4.5) H 12/24/24 03:04
Albumin 3.5 g/dl (3.5-5.0) 12/23/24 11:19
Physical Exam
-
Vital Signs:
Vital Signs
Temp Pulse Resp BP Pulse Ox
97.8 F 69 17 132/65 95
12/24/24 07:03 12/24/24 10:00 12/24/24 10:00 12/24/24 10:00 12/24/24 10:00
Respiratory:: Bilateral: CTA
Lung Excursion:: Normal
Abdomen:: Soft
Bowel Sounds:: Normal
Extremity Edema:: +1: Bilateral:
[2024-12-24 12:48] LABS: Glucose - Point of Care 323 mg/dl (70-99)
--- NOTE | 2024-12-24 13:44 | PTCARENOTE ---
Assumed care of patient at beginning of this shift from previous RN. Accu checks had been running low on previous shift; order changed to Q1h. Stat solumedrol given as ordered. Accu checks this mornin, 115, 123, 170, 282. TT sent to Dr Harris who
changed order to Q2h. Also reviewed with Dr Elias who changed IVF order to D5NS @ 150ml/hr. See worklist for full assessment and vital signs.
--- NOTE | 2024-12-24 14:38 | CM ---
Patient with Hx left PCN tube with Dx DM-II with Hypoglycemia, MELANIE, metabolic acidosis, Complicated UTI, anemia. Room air. Receiving IV Abx, IVF. PT & OT recommends HH. Per nurse; forgetful.
Spoke with Jaya Kaufman, [facility]; patient is accepted for resumption of service. Patient was receiving SN/PT/OT services.
As per prior CM notes; caregiver list given to daughter, who will consider if she wants to have caregiver in place.
Plan contact daughter when aware of discharge date.
Plan home with [facility], with caregiver list.
[2024-12-24 14:41] LABS: Glucose - Point of Care 397 mg/dl (70-99)
--- NOTE | 2024-12-24 16:17 | PN.CDI ---
CDI
- -
CDI:
Physician Documentation Request
Admit Date: 12/23/24 04:37
Dear Doctor Do,
Please review the following and provide your response in the progress notes.
Clinical Indicators:
Pt admitted with MELANIE/ UTI
Documented per progress note 12/23,' Complicated UTI
Patient with leukocytosis of 27 and UA consistent with possible infection (with PCN / device in place)....'
Please clarify the relationship between these conditions:
Yes, _UTI __ is related to/associated with/due to Nephrostomy tube ___.
No, _UTI__ is not related to/associated with/due to _Nephrostomy Tube __ but it is due to ___. (Please specify)
Other ( please specify)
Use of terms such as suspected, likely, concern for, or probable (associated with a specific diagnosis that is being evaluated, monitored, or treated as if it exists) are acceptable and can be coded in the inpatient setting, when documented at the
time of discharge.
Thank you,
Lala Mobley RN
CDI Specialist
[place] Text
Please use your independent medical judgment in providing your response.
[2024-12-24 16:46] LABS: Glucose - Point of Care 416 mg/dl (70-99)
[2024-12-24 17:26] LABS: Glucose 379 mg/dl (70-99)
[2024-12-24] MEDS: NSS 1000 IV (17:40)
--- NOTE | 2024-12-24 17:55 | PTCARENOTE ---
Accu check from 16:35 was RRH; stat glucose 379. Dr Harris notified via TT. IVF changed to NSS @100ml/hr and novolog sliding scale coverage added. See updated orders. Pharmacist aware; will send insulin pen. Patient updated.
[2024-12-24] MEDS: NOVOLOG FLEXPEN-LOW RESISTANCE 5 UNITS SC (18:26)
[2024-12-24] MEDS: COREG 25 MG PO (20:04)
[2024-12-24 21:58] LABS: Glucose - Point of Care 323 mg/dl (70-99)
[2024-12-24] MEDS: NOVOLOG FLEXPEN 3 UNITS SC (22:40)
[2024-12-25] VITALS (16 sets, daily range): BP systolic 111–144; BP diastolic 63–73; PULSE 85; BMI 31.5
--- NOTE | 2024-12-25 02:35 | PTCARENOTE ---
Addendum entered by Wendy Tellez RN 12/25/24 03:36:
Pt requesting cpap to come off at this time.
Original Note:
Pt appearing to get sleep over night. Pt wearing cpap at hs. Respirations even unlabored spo2 97%. Pt HS glucose 323 night SOFTWARE TEST SPECIALIST made aware, 3 units flex pen low ordered. Call mahan within reach. Assessment as charted.
[2024-12-25] MEDS: NSS 1000 IV ×2 (03:32→20:30)
[2024-12-25 03:34] LABS: Glucose - Point of Care 187 mg/dl (70-99)
[2024-12-25 04:14] LABS: Blood Urea Nitrogen 81 mg/dl (9-20); Calcium 8.5 mg/dl (8.4-10.2); Carbon Dioxide 18 mmol/L (22-30); Chloride 108 mmol/L (98-107); Estimated Creatinine Clearance 15 ml/min; Glucose 174 mg/dl (70-99); Magnesium 1.9 mg/dl (1.6-2.3); Potassium 4.3 mmol/L (3.5-5.1); Sodium 137 mmol/L (135-145); eGFR 9.50
[2024-12-25 04:19] LABS: Hematocrit 19.9 % (39.0-52.0); Hemoglobin 6.9 g/dL (13.0-18.0); Mean Corp Hgb Conc. 34.7 g/dL (33.0-37.0); Mean Corpuscular Volume 90.9 fL (80.0-94.0); Platelet Count 114 10^3/uL (130-400); Red Cell Dist. Width 14.3 % (11.5-14.5)
--- NOTE | 2024-12-25 04:42 | PTCARENOTE ---
Addendum entered by Wendy Tellez RN 12/25/24 05:56:
Order placed for 1 unit PRBC. Education given. Transfusion started Pt appears to be tolerating well at this time.
Original Note:
Pt morning labs coming back h&H critical. Night DROP PIT WORKER made aware.
--- NOTE | 2024-12-25 04:54 | W.PN.UPDATE ---
Update Note
Progress Note Update
hgb 6.9, asymptomatic, stable Vs, no active bleeding per RN. consent in chart, Type and screen done will order 1 u of PRBC Heparin SQ held.
[2024-12-25 05:10] LABS: Ferritin 242.0 ng/ml (17.9-464.0)
--- NOTE | 2024-12-25 06:31 | PTCARENOTE ---
Education given to Pt about Diabetes multiple times over night. Pt stating he was never told 'what to do when he is sick' or 'when not eating a lot'. Diabetic education order placed.
[2024-12-25 07:36] LABS: Glucose - Point of Care 141 mg/dl (70-99)
[2024-12-25] MEDS: NOVOLOG FLEXPEN-LOW RESISTANCE SC (07:47)
--- NOTE | 2024-12-25 08:21 | PTCARENOTE ---
Patient received from material handler 1st shift. Patient resting comfortably in bed. AAO, VSS. No events noted overnight, patient is receiving 1 unit PRBC due to Hgb of 6.9. No complaints of pain at this time. Patient wore CPAP through the night, now on Room
Air. NSS @ 100mL/hr, continuing ABX. OOB to chair today. No testing scheduled at this time. Call mahan in reach.
[2024-12-25] MEDS: LOW STRENGTH ASPIRIN 81 MG PO (08:57)
[2024-12-25] MEDS: COREG 25 MG PO ×2 (08:57→20:46)
[2024-12-25] MEDS: CRESTOR 20 MG PO (08:57)
[2024-12-25] MEDS: NORVASC 5 MG PO ×2 (08:57→20:45)
[2024-12-25] MEDS: VITAMIN D3 (cholecalciferol) 25 MCG PO (08:57)
[2024-12-25] MEDS: CATAPRES 0.2 MG PO ×2 (08:58→20:46)
[2024-12-25] MEDS: FIRVANQ 125 MG PO (08:58)
--- NOTE | 2024-12-25 09:15 | W.PN.HOSP.TC ---
Today's Communication/Plan
-
see bold
Assessment / Plan
Assessment / Plan
74y M with PMH significant for HTN, DM-II and CKD who presents to ED for evaluation of weakness / unresponsiveness.
DM-II with Hypoglycemia
Weakness / Unresponsiveness secondary to the above
- A1C 6.7. Due to taking glimepiride with worsening renal function
- Recommend permanently discontinue glimepiride
- Patient hyperglycemic on 12/24, IV dextrose IV fluids changed to normal saline
- Monitor blood sugars on carb controlled diet, continue Accu-Cheks, sliding scale insulin
MELANIE on CKD
Hyperkalemia
Metabolic Acidosis
Obstructive Uropathy
- Creatinine upon admission is 7.3, baseline creatinine 1.6 on 12/03/2024
- L PCN in place and appears to be draining well.
- Appreciate nephrology input, IV fluids, no need for dialysis currently
- Hyperkalemia resolved s/p Lokelma, hold spironolactone
- CT abdomen and pelvis negative for left hydronephrosis
- Patient was supposed to have another surgery at [place] 01/12
- Trend creatinine, trend daily weights, no nephrotoxic drugs/NSAID
Urinary tract infection ruled out
- Patient has CLL, therefore he has a chronic leukocytosis. Urine culture show mixed guy, likely contamination
- Discontinued IV Rocephin
- Started oral vancomycin for C. difficile prophylaxis -continue for 3 more days
CLL
Anemia of chronic disease
- Iron studies reviewed, likely from anemia of chronic disease
- Hemoglobin 6.9 today, patient received 1 unit of packed red blood cells, recheck hemoglobin in the a.m.
- Consult heme-onc
Benign Hypertension
- Continue Coreg 25 mg twice a day, clonidine 0.2 mg twice a day, amlodipine 5 mg twice a day,
- Hold spironolactone given hyperkalemia/ MELANIE.
Coronary artery disease
- Continue aspirin, statin, beta-imtiaz
Obesity due to excess calories
- Affects all aspects of care
CLL
Prostate cancer
Obstructive sleep apnea
Gout
DVT Prophylaxis: Subcut heparin
Code Status: Full
Updated daughter on phone 12/24
Total time spent to see the patient on the floor, examine the patient, review data and lab results, discuss treatment plan with patient, nursing staff around 40 minutes.
Physical Exam
General: Obese, no acute distress
HEENT: Normocephalic, Atraumatic, EOMI, MMM
Respiratory: Clear to Auscultation bilaterally
Cardiac: Normal S1/S2, Regular Rate and Rhythm
GI: Soft, Nontender, Nondistended, Normal Bowel Sounds
: L PCN tube w/ clear yellow urine
Extremities: No Clubbing, Cyanosis, or Edema
Neuro: Nonfocal/Grossly Intact
Anticipated Discharge: > 48 hours
Subjective/Interval History
-
Date of Service: December 25, 2024
Objective Data
-
Labs:
Laboratory Results
12/25/24
03:22
WBC 17.6 H
Hgb 6.9 L*
Hct 19.9 L*
Plt Count 114 L D
Sodium 137
Potassium 4.3
Chloride 108 H
Carbon Dioxide 18 L
BUN 81 H
Creatinine 5.9 H*
Glucose 174 H
Calcium 8.5
Vital Signs:
Vital Signs
Temp Pulse Resp BP Pulse Ox
97.8 F 67 12 128/70 96
12/25/24 08:54 12/25/24 08:57 12/25/24 08:54 12/25/24 08:57 12/25/24 08:54
I&O
12/24/24 12/25/24 12/26/24
06:59 06:59 06:59
Intake Total 240 / 240 1440 / 1440 250 / 250
Output Total 2500 / 2500 2300 / 2300 850 / 850
Balance -2260 / -2260 -860 / -860 -600 / -600
[2024-12-25 11:56] LABS: Iron 183 ug/dl (49-181)
[2024-12-25 11:58] LABS: Glucose - Point of Care 238 mg/dl (70-99)
[2024-12-25 12:06] LABS: Total Iron Binding Capacity 214 ug/dl (261-462)
[2024-12-25] MEDS: NOVOLOG FLEXPEN-LOW RESISTANCE 2 UNITS SC (12:20)
[2024-12-25 12:32] LABS: Ferritin 239.0 ng/ml (17.9-464.0)
--- NOTE | 2024-12-25 13:36 | W.PN.HOSP.TC ---
Today's Communication/Plan
-
see bold
Assessment / Plan
Assessment / Plan
74y M with PMH significant for HTN, DM-II and CKD who presents to ED for evaluation of weakness / unresponsiveness.
DM-II with Hypoglycemia
Weakness / Unresponsiveness secondary to the above
- A1C 6.7. Due to taking glimepiride with worsening renal function
- Recommend permanently discontinue glimepiride
- Patient hyperglycemic on 12/24, IV dextrose IV fluids changed to normal saline
- Monitor blood sugars on carb controlled diet, continue Accu-Cheks, sliding scale insulin
MELANIE on CKD
Hyperkalemia
Metabolic Acidosis
Obstructive Uropathy
- Creatinine upon admission is 7.3, baseline creatinine 1.6 on 12/03/2024
- L PCN in place and appears to be draining well.
- Appreciate nephrology input, continue IV fluids, no need for dialysis currently
- Hyperkalemia resolved s/p Lokelma, hold spironolactone
- CT abdomen and pelvis negative for left hydronephrosis
- Patient was supposed to have another surgery at [place] 01/12
- Trend creatinine, trend daily weights, no nephrotoxic drugs/NSAID
Urinary tract infection ruled out
- Patient has CLL, therefore he has a chronic leukocytosis. Urine culture show mixed guy, likely contamination
- Discontinued IV Rocephin
- Started oral vancomycin for C. difficile prophylaxis -continue for 3 more days
CLL
Anemia of chronic disease
- Iron studies reviewed, likely from anemia of chronic disease
- Hemoglobin 6.9 today, patient received 1 unit of packed red blood cells, recheck hemoglobin in the a.m.
- Consult heme-onc
Benign Hypertension
- Continue Coreg 25 mg twice a day, clonidine 0.2 mg twice a day, amlodipine 5 mg twice a day,
- Hold spironolactone given hyperkalemia/ MELANIE.
Coronary artery disease
- Continue aspirin, statin, beta-imtiaz
Obesity due to excess calories
- Affects all aspects of care
Prostate cancer
Obstructive sleep apnea
Gout
DVT Prophylaxis: Subcut heparin
Code Status: Full
Updated daughter on phone 12/24
Total time spent to see the patient on the floor, examine the patient, review data and lab results, discuss treatment plan with patient, nursing staff around 39 minutes.
Physical Exam
General: Obese, no acute distress
HEENT: Normocephalic, Atraumatic, EOMI, MMM
Respiratory: Clear to Auscultation bilaterally
Cardiac: Normal S1/S2, Regular Rate and Rhythm
GI: Soft, Nontender, Nondistended, Normal Bowel Sounds
: L PCN tube w/ clear yellow urine
Extremities: No Clubbing, Cyanosis, or Edema
Neuro: Nonfocal/Grossly Intact
Anticipated Discharge: > 48 hours
Subjective/Interval History
-
Date of Service: December 25, 2024
Patient denies pain, denies nausea, denies vomiting. No fever.
Objective Data
-
Labs:
Laboratory Results
12/25/24
03:22
WBC 17.6 H
Hgb 6.9 L*
Hct 19.9 L*
Plt Count 114 L D
Sodium 137
Potassium 4.3
Chloride 108 H
Carbon Dioxide 18 L
BUN 81 H
Creatinine 5.9 H*
Glucose 174 H
Calcium 8.5
Vital Signs:
Vital Signs
Temp Pulse Resp BP Pulse Ox
97.9 F 67 12 128/70 93
12/25/24 11:32 12/25/24 08:57 12/25/24 08:54 12/25/24 08:57 12/25/24 09:56
I&O
12/24/24 12/25/24 12/26/24
06:59 06:59 06:59
Intake Total 240 / 240 1440 / 1440 250 / 250
Output Total 2500 / 2500 2300 / 2300 1250 / 1250
Balance -2260 / -2260 -860 / -860 -1000 / -1000
--- NOTE | 2024-12-25 13:53 | CON.ONC ---
Consultation
-
Date Consultation Requested: 12/25/24
Date Consultation Performed: 12/25/24
Requesting Provider: Dr. Jose De Jesus Harris
Performing Provider: Dr. Shanice Bettencourt
Reason for Consultation: CLL
Impression
Impression
MELANIE w/ h/o CKD
Anemia
CLL, stage 0, good prognosis
Plan
Plan
Suspect anemia is acute on chronic, related to MELANIE
Will check hemolysis martin and SPEP/CANDY to be complete
would transfuse as clinically indicated
CLL is chronic, hasn't needed treatment. Explains leukocytosis/lymphocytosis
Patient History
History of Present Illness
This is a 74yo M w/ h/o good prognosis CLL, known to Dr. Zarate. He was last seen there in 02/2024 per review of outpatient records. CBC at that time shows WBC of 16, hgb of 10, and platelet count of 157. Creatinine was 2.31. He was a 'no-show' for
his visit in 08/2024.
He is a poor historian.
He was admitted to on 12/23/24 with weakness, and hgb of 8, down to 6.9 today. Creatinine was 7.3 at admission, today is 5.9. His MELANIE is being managed by nephology, and he's known to [facility] for h/o obstructive uropathy. CT scans here show no
adenopathy.
Past-Medical/Surgical History
Past Medical History
Past Medical History: Reports Other
Additional Past Medical History:
DM-II
Hypertension
CKD - ? Stage
Obstructive Uropathy
Obesity
Past Surgical History: Reports Other
Additional Past Surgical History:
Left Percutaneous Nephrostomy
T&A
Social History
Tobacco: Non-smoker
Alcohol: None
Drug: None
Family History
Family History: Not pertinent
Patient Medication
�Medication �Instructions �Recorded �Confirmed �Last Taken �Type
amlodipine 5 mg tablet 5 mg PO BID Blood Pressure 12/23/24 12/23/24 Unknown History
aspirin 81 mg chewable tablet 81 mg PO DAILY Blood Clot 12/23/24 12/23/24 Unknown History
Prevention/Tx
carvedilol 25 mg tablet 25 mg PO BID Blood Pressure 12/23/24 12/23/24 Unknown History
cholecalciferol (vitamin D3) 25 25 mcg PO DAILY Supplement 12/23/24 12/23/24 Unknown History
mcg (1,000 unit) tablet
clonidine HCl 0.2 mg tablet 0.2 mg PO BID Blood Pressure 12/23/24 12/23/24 Unknown History
glimepiride 2 mg tablet 3 mg PO DAILY Diabetes 12/23/24 12/23/24 Unknown History
omega 6-nco-ljw-fish oil 1,200 mg 1 cap PO BID Supplement 12/23/24 12/23/24 Unknown History
(144 mg-216 mg) capsule (Fish Oil)
rosuvastatin 20 mg tablet 20 mg PO DAILY High Cholesterol 12/23/24 12/23/24 Unknown History
spironolactone 25 mg tablet 25 mg PO DAILY Blood Pressure 12/23/24 12/23/24 Unknown History
Active Medications
Generic Name Dose Route Start Last Admin
Trade Name Freq PRN Reason Stop Dose Admin
Acetaminophen 650 mg 12/23/24 06:09
Acetaminophen 325 Mg Tablet PO 01/20/25 06:08
Q4HPRN PRN
Mild Pain / Temp > 101
Amlodipine Besylate 5 mg 12/23/24 08:00 12/25/24 08:57
Amlodipine 5 Mg Tablet PO 01/20/25 07:59 5 mg
BID SUMAYA Administration
Aspirin 81 mg 12/23/24 08:00 12/25/24 08:57
Aspirin 81 Mg Chewable Tablet PO 01/20/25 07:59 81 mg
DAILY SUMAYA Administration
Carvedilol 25 mg 12/23/24 08:00 12/25/24 08:57
Carvedilol 25 Mg Tablet PO 01/20/25 07:59 25 mg
BID SUMAYA Administration
Cholecalciferol 25 mcg 12/23/24 08:00 12/25/24 08:57
Cholecalciferol (Vitamin D3) 25 Mcg Tablet (1,000 Units) PO 01/20/25 07:59 25 mcg
DAILY SUMAYA Administration
Clonidine HCl 0.2 mg 12/23/24 08:00 12/25/24 08:58
Clonidine 0.2 Mg Tablet PO 01/20/25 07:59 0.2 mg
BID SUMAYA Administration
Dextrose 25 grams 12/24/24 17:40
Dextrose 50% (0.5 Grams/Ml) 50 Ml Syringe IV 01/21/25 17:39
[id number] PRN
hypoglycemia
Protocol
Glucagon 1 mg 12/23/24 06:09
Glucagon 1 Mg Vial IM 01/20/25 06:08
PRN PRN
hypoglycemia
Protocol
Heparin Sodium 5,000 units 12/23/24 08:00 12/24/24 20:04
Heparin 5,000 Units/Ml 1 Ml Vial SC 01/20/25 07:59 5,000 units
On Hold: 12/25/24 04:55 Q12 SUMAYA Administration
Sodium Chloride 1,000 mls @ 100 mls/hr 12/24/24 17:45 12/25/24 03:32
Nss IV 1,000 mls
.Q10H SUMAYA Administration
Insulin Aspart 0 units 12/24/24 16:30 12/25/24 12:20
Insulin Aspart Low Resistance 300 Units/3 Ml Pen.Injctr SC 01/21/25 16:29 2 units
AC SUMAYA Administration
Protocol
Ondansetron HCl 4 mg 12/23/24 16:49
Ondansetron 4 Mg/2 Ml Vial IV 01/20/25 16:48
Q6HPRN PRN
NAUSEA/VOMITING
Rosuvastatin Calcium 20 mg 12/23/24 08:00 12/25/24 08:57
Rosuvastatin (Crestor) 20 Mg Tablet PO 01/20/25 07:59 20 mg
DAILY SUMAYA Administration
Sodium Chloride 0 flush 12/23/24 07:00
Sodium Chloride 0.9% (Flush) Syringe IV 01/20/25 06:59
PER PROTOCOL SUMAYA
Vancomycin HCl 125 mg 12/23/24 17:00 12/25/24 08:58
Vancomycin Oral Solution 50 Mg/Ml In Oral Syringe PO 125 mg
DAILY SUMAYA Administration
Review of Systems
-
All Other Systems: Not reviewed unless documented
Physical Exam
-
General: Well Developed, Well Nourished and No Apparent Distress
HEENT: Moist Mucous Membranes; Negative Jaundice
Cardiology: Normal Sinus Rhythm
Pulmonary: Clear
GI: Soft; Negative Hepatomegaly or Spleenomegaly
Musculoskeletal: No Clubbing, No Cyanosis and No Edema
Neurology: Non Focal, No Lateralizing Symptoms and No Word Finding Difficulty
Hematologic / Lymphatic: No Lymphadenopathy
Psych: Calm
Labs
Lab Results
WBC 17.6 10^3/uL (4.8-10.8) H 12/25/24 03:22
RBC 2.19 10^6/uL (4.70-6.10) L 12/25/24 03:22
Hgb 6.9 g/dL (13.0-18.0) L* 12/25/24 03:22
Hct 19.9 % (39.0-52.0) L* 12/25/24 03:22
MCV 90.9 fL (80.0-94.0) 12/25/24 03:22
MCH 31.5 pg (27.0-31.0) H 12/25/24 03:22
MCHC 34.7 g/dL (33.0-37.0) 12/25/24 03:22
RDW 14.3 % (11.5-14.5) 12/25/24 03:22
Plt Count 114 10^3/uL (130-400) L D 12/25/24 03:22
MPV 10.0 fL (7.4-10.4) 12/25/24 03:22
Abs Immat Gran (auto) 0.0 10^3/uL (0-0.05) 12/24/24 03:04
Absolute Neuts (auto) 5.4 10^3/uL (1.4-6.5) 12/24/24 03:04
Absolute Lymphs (auto) 15.1 10^3/uL (1.2-3.4) H 12/24/24 03:04
Absolute Monos (auto) 0.5 10^3/uL (0.1-0.6) 12/24/24 03:04
Absolute Eos (auto) 0.3 10^3/uL (0-0.7) 12/24/24 03:04
Absolute Basos (auto) 0.1 10^3/uL (0-0.2) 12/24/24 03:04
Immature Gran % 0.1 % (0-0.5) 12/24/24 03:04
Neutrophils % 25.3 % (42.2-75.2) L 12/24/24 03:04
Lymphocytes % 70.5 % (20.5-51.1) H 12/24/24 03:04
Monocytes % 2.5 % (1.7-9.3) 12/24/24 03:04
Eosinophils % 1.3 % (0-6) 12/24/24 03:04
Basophils % 0.3 % (0-2) 12/24/24 03:04
Creatinine 5.9 mg/dL (0.7-1.3) H* 12/25/24 03:22
Vital Signs
Vital Signs
Temp Pulse Resp BP Pulse Ox
97.9 F 67 12 128/70 93
12/25/24 11:32 12/25/24 08:57 12/25/24 08:54 12/25/24 08:57 12/25/24 09:56
--- NOTE | 2024-12-25 15:35 | W.PN.NEPH.PH ---
Addendum entered and electronically signed by Edward Conner MD 12/25/24 16:17:
IVF for MELANIE, not for hypoglycemia
Original Note:
Today's Communication / Plan
-
Check urinalysis
Assessment/Plan
-
74y M with PMH significant for CKD, obstructive uropathy, DM-II and hypertension who presents to ED complaining of weakness. He was reportedly noted to be hypoglycemic and received dextrose en route to the ED.
He is typically followed at [facility] as well as [place].
He currently has a L PCN in place and is scheduled for more definitive surgery at [facility] in the coming weeks.
Patient notes that he has been on antibiotics recently (completed a course of Bactrim last week according to his med list).
Reviewed records from [facility] he had a creatinine of 1.6 on December 03, 2024 on discharge. The nephrostomy tube was placed on that admission and he had acute kidney injury with a creatinine above 3 at the time. Atrophic R kidney and an
obstructed L kidney due to a hernia.
Patient was tested for C. difficile at [facility] which was negative but he was placed on prophylactic C. difficile while on antibiotic at [facility]
Renal consult for acute kidney injury and metabolic acidosis creatinine of 7
Impression.
Acute kidney injury with a creatinine of 7.3 from 1.6 in December 03, 2024.
Hyperkalemia
Acute metabolic acidosis
Chronic left nephrostomy tube draining.
Leukocytosis
DM2
Plan.
Potassium improved after Lokelma
Follow BMP
Check urinalysis from nephrostomy as well as from bladder
Off IV fluids with improved glucose
No current emergent needs for dialysis
-
-
Date of Service: December 25, 2024
CC / HPI / ROS
-
Chief Complaint:
Acute kidney injury
History of Present Illness:
Acute kidney injury with metabolic acidosis with chronic left nephrostomy tube presents with hypoglycemia
Hemoglobin lower 6.9
Platelets lower 114
MELANIE/creatinine improving 5.9
Mild metabolic acidosis 18
Review of Systems:
No chest pain
Nonoliguric
Labs
-
Labs:
WBC 17.6 10^3/uL (4.8-10.8) H 12/25/24 03:22
RBC 2.19 10^6/uL (4.70-6.10) L 12/25/24 03:22
Hgb 6.9 g/dL (13.0-18.0) L* 12/25/24 03:22
Hct 19.9 % (39.0-52.0) L* 12/25/24 03:22
Plt Count 114 10^3/uL (130-400) L D 12/25/24 03:22
Sodium 137 mmol/L (135-145) 12/25/24 03:22
Potassium 4.3 mmol/L (3.5-5.1) 12/25/24 03:22
Chloride 108 mmol/L (98-107) H 12/25/24 03:22
Carbon Dioxide 18 mmol/L (22-30) L 12/25/24 03:22
BUN 81 mg/dl (9-20) H 12/25/24 03:22
Creatinine 5.9 mg/dL (0.7-1.3) H* 12/25/24 03:22
eGFR 9.50 12/25/24 03:22
Glucose 174 mg/dl (70-99) H 12/25/24 03:22
Calcium 8.5 mg/dl (8.4-10.2) 12/25/24 03:22
Phosphorus 6.9 mg/dl (2.5-4.5) H 12/25/24 03:22
Albumin 3.5 g/dl (3.5-5.0) 12/23/24 11:19
Physical Exam
-
Vital Signs:
Vital Signs
Temp Pulse Resp BP Pulse Ox
97.9 F 64 12 111/63 93
12/25/24 11:32 12/25/24 14:00 12/25/24 14:00 12/25/24 14:00 12/25/24 14:00
Cardiovascular:: Regular rate and rhythm
Respiratory:: Bilateral: Coarse
Lung Excursion:: Normal
Abdomen:: Nontender and Soft
Bowel Sounds:: Normal
Extremity Edema:: None: Bilateral:
[2024-12-25 16:08] LABS: Urine Character Slightly Cloudy (Clear)
[2024-12-25 16:28] LABS: Urine Squamous Cell 26-30 /LPF (Few); Urine Urothelial Cell 0-2 /LPF (FEW)
[2024-12-25 16:29] LABS: Urine White Cell 40-50 /HPF (0-5)
--- NOTE | 2024-12-25 16:41 | PTCARENOTE ---
Report called to Sandra [facility] [address]
[2024-12-25 17:15] LABS: Glucose - Point of Care 328 mg/dl (70-99)
[2024-12-25] MEDS: NOVOLOG FLEXPEN-LOW RESISTANCE 4 UNITS SC (17:27)
[2024-12-25 21:44] LABS: Glucose - Point of Care 175 mg/dl (70-99)
[2024-12-25 22:10] LABS: Urine Character Slightly Cloudy (Clear)
[2024-12-25 22:16] LABS: Urine Squamous Cell None seen /LPF (Few)
[2024-12-25 22:17] LABS: Urine White Cell >100 /HPF (0-5)
[2024-12-26 03:00] VITALS: PULSE 84
[2024-12-26] MEDS: NSS 1000 IV ×2 (05:17→16:36)
[2024-12-26 06:00] VITALS: BMI 33.2
[2024-12-26 07:06] LABS: Glucose - Point of Care 115 mg/dl (70-99)
[2024-12-26 07:30] VITALS: BP 145/70
[2024-12-26 07:48] LABS: Hematocrit 24.9 % (39.0-52.0); Hemoglobin 8.4 g/dL (13.0-18.0); Mean Corp Hgb Conc. 33.7 g/dL (33.0-37.0); Mean Corpuscular Volume 92.9 fL (80.0-94.0); Platelet Count 183 10^3/uL (130-400); Red Cell Dist. Width 14.5 % (11.5-14.5); Reticulocyte Count 1.1 % (0.4-2.8)
[2024-12-26 07:54] LABS: Blood Urea Nitrogen 71 mg/dl (9-20); Calcium 9.0 mg/dl (8.4-10.2); Carbon Dioxide 20 mmol/L (22-30); Chloride 111 mmol/L (98-107); Estimated Creatinine Clearance 16 ml/min; Glucose 107 mg/dl (70-99); LDH 159 U/L (120-246); Magnesium 1.8 mg/dl (1.6-2.3); Potassium 4.3 mmol/L (3.5-5.1); Sodium 138 mmol/L (135-145); eGFR 10.34
[2024-12-26] MEDS: CATAPRES 0.2 MG PO ×2 (08:44→21:07)
[2024-12-26] MEDS: COREG 25 MG PO ×2 (08:44→21:08)
[2024-12-26] MEDS: NOVOLOG FLEXPEN-LOW RESISTANCE SC (08:44)
[2024-12-26] MEDS: LOW STRENGTH ASPIRIN 81 MG PO (08:44)
[2024-12-26] MEDS: VITAMIN D3 (cholecalciferol) 25 MCG PO (08:44)
[2024-12-26] MEDS: CRESTOR 20 MG PO (08:44)
[2024-12-26] MEDS: NORVASC 5 MG PO ×2 (08:45→21:07)
[2024-12-26] MEDS: FIRVANQ 125 MG PO (08:45)
--- NOTE | 2024-12-26 12:26 | W.PN.NEPH.PH ---
Today's Communication / Plan
-
follow BMP
Assessment/Plan
-
74y M with PMH significant for CKD, obstructive uropathy, DM-II and hypertension who presents to ED complaining of weakness. He was reportedly noted to be hypoglycemic and received dextrose en route to the ED.
He is typically followed at [facility] as well as [place].
He currently has a L PCN in place and is scheduled for more definitive surgery at [facility] in the coming weeks.
Patient notes that he has been on antibiotics recently (completed a course of Bactrim last week according to his med list).
Reviewed records from [facility] he had a creatinine of 1.6 on December 03, 2024 on discharge. The nephrostomy tube was placed on that admission and he had acute kidney injury with a creatinine above 3 at the time. Atrophic R kidney and an
obstructed L kidney due to a hernia.
Patient was tested for C. difficile at [facility] which was negative but he was placed on prophylactic C. difficile while on antibiotic at [facility]
Renal consult for acute kidney injury and metabolic acidosis creatinine of 7
Impression.
Acute kidney injury with a creatinine of 7.3 from 1.6 in December 03, 2024.
Hyperkalemia
Acute metabolic acidosis
Chronic left nephrostomy tube draining.
Leukocytosis
DM2
Plan.
Follow BMP
Check urinalysis from nephrostomy as well as from bladder-both with hematuria and proteinuria
reduce IVF
check serologies in am
U prot/creat
-
-
Date of Service: December 26, 2024
CC / HPI / ROS
-
Chief Complaint:
Acute kidney injury
History of Present Illness:
Acute kidney injury with metabolic acidosis with chronic left nephrostomy tube presents with hypoglycemia
Hemoglobin up to 8.6
Platelets up to 183
MELANIE/creatinine improving 5.5
Mild metabolic acidosis 20 improving
Review of Systems:
No chest pain
Nonoliguric
Labs
-
Labs:
WBC 20.9 10^3/uL (4.8-10.8) H 12/26/24 07:19
RBC 2.68 10^6/uL (4.70-6.10) L 12/26/24 07:19
Hgb 8.4 g/dL (13.0-18.0) L D 12/26/24 07:19
Hct 24.9 % (39.0-52.0) L 12/26/24 07:19
Plt Count 183 10^3/uL (130-400) D 12/26/24 07:19
Sodium 138 mmol/L (135-145) 12/26/24 07:19
Potassium 4.3 mmol/L (3.5-5.1) 12/26/24 07:19
Chloride 111 mmol/L (98-107) H 12/26/24 07:19
Carbon Dioxide 20 mmol/L (22-30) L 12/26/24 07:19
BUN 71 mg/dl (9-20) H 12/26/24 07:19
Creatinine 5.5 mg/dL (0.7-1.3) H* 12/26/24 07:19
eGFR 10.34 12/26/24 07:19
Glucose 107 mg/dl (70-99) H 12/26/24 07:19
Calcium 9.0 mg/dl (8.4-10.2) 12/26/24 07:19
Phosphorus 6.5 mg/dl (2.5-4.5) H 12/26/24 07:19
Albumin 3.5 g/dl (3.5-5.0) 12/23/24 11:19
Physical Exam
-
Vital Signs:
Vital Signs
Temp Pulse Resp BP Pulse Ox
96.7 F L 62 17 145/70 98
12/26/24 07:30 12/26/24 08:45 12/26/24 07:30 12/26/24 08:45 12/26/24 08:15
Cardiovascular:: Regular rate and rhythm
Respiratory:: Bilateral: CTA
Lung Excursion:: Normal
Abdomen:: Nontender and Soft
Bowel Sounds:: Normal
Extremity Edema:: None: Bilateral:
[2024-12-26 12:56] LABS: Glucose - Point of Care 199 mg/dl (70-99)
[2024-12-26] MEDS: NOVOLOG FLEXPEN-LOW RESISTANCE 1 UNITS SC (13:07)
--- NOTE | 2024-12-26 13:25 | W.PN.HOSP.TC ---
Today's Communication/Plan
-
see bold
Assessment / Plan
Assessment / Plan
74y M with PMH significant for HTN, DM-II and CKD who presents to ED for evaluation of weakness / unresponsiveness.
DM-II with Hypoglycemia
Weakness / Unresponsiveness secondary to the above
- A1C 6.7. Due to taking glimepiride with worsening renal function
- Recommend permanently discontinue glimepiride
- Patient hyperglycemic on 12/24, IV dextrose IV fluids changed to normal saline
- Monitor blood sugars on carb controlled diet, continue Accu-Cheks, sliding scale insulin
MELANIE on CKD
Hyperkalemia
Metabolic Acidosis
Obstructive Uropathy
- Creatinine upon admission is 7.3, baseline creatinine 1.6 on 12/03/2024
- L PCN in place and appears to be draining well.
- Appreciate nephrology input, continue IV fluids, no need for dialysis currently
- Hyperkalemia resolved s/p Lokelma, hold spironolactone
- CT abdomen and pelvis negative for left hydronephrosis
- Patient was supposed to have another surgery at [place] 01/12
- Trend creatinine, trend daily weights, no nephrotoxic drugs/NSAID
Urinary tract infection ruled out
- Patient has CLL, therefore he has a chronic leukocytosis. Urine culture show mixed guy, likely contamination
- Discontinued IV Rocephin
- Status post oral vancomycin for C. difficile prophylaxis
CLL
Anemia of chronic disease
- Iron studies reviewed, likely from anemia of chronic disease
- Appreciate heme-onc input, suspect acute on chronic anemia
- Status post 1 unit packed red blood cells on 12/24/2024 for hemoglobin 6.9
- Hemoglobin much improved, continue to trend, transfuse for hemoglobin less than 7.0
Benign Hypertension
- Continue Coreg 25 mg twice a day, clonidine 0.2 mg twice a day, amlodipine 5 mg twice a day,
- Hold spironolactone given hyperkalemia/ MELANIE.
Coronary artery disease
- Continue aspirin, statin, beta-imtiaz
Obesity due to excess calories
- Affects all aspects of care
Prostate cancer
Obstructive sleep apnea
Gout
DVT Prophylaxis: Subcut heparin
Code Status: Full
Updated daughter on phone 12/24
Total time spent to see the patient on the floor, examine the patient, review data and lab results, discuss treatment plan with patient, nursing staff around 39 minutes.
Physical Exam
General: Obese, no acute distress
HEENT: Normocephalic, Atraumatic, EOMI, MMM
Respiratory: Clear to Auscultation bilaterally
Cardiac: Normal S1/S2, Regular Rate and Rhythm
GI: Soft, Nontender, Nondistended, Normal Bowel Sounds
: L PCN tube w/ clear yellow urine
Extremities: No Clubbing, Cyanosis, or Edema
Neuro: Nonfocal/Grossly Intact
Anticipated Discharge: > 48 hours
Subjective/Interval History
-
Date of Service: December 26, 2024
Patient denies pain, denies nausea, denies vomiting. No fever.
Objective Data
-
Labs:
Laboratory Results
12/26/24
07:19
WBC 20.9 H
Hgb 8.4 L D
Hct 24.9 L
Plt Count 183 D
Sodium 138
Potassium 4.3
Chloride 111 H
Carbon Dioxide 20 L
BUN 71 H
Creatinine 5.5 H*
Glucose 107 H
Calcium 9.0
Vital Signs:
Vital Signs
Temp Pulse Resp BP Pulse Ox
96.7 F L 62 17 145/70 98
12/26/24 07:30 12/26/24 08:45 12/26/24 07:30 12/26/24 08:45 12/26/24 08:15
I&O
12/25/24 12/26/24 12/27/24
06:59 06:59 06:59
Intake Total 1440 / 1440 430 / 430
Output Total 2300 / 2300 2150 / 3100 950 / 950
Balance -860 / -860 -1720 / -2670 -950 / -950
[2024-12-26 15:30] VITALS: BP 147/65
[2024-12-26 17:48] LABS: Glucose - Point of Care 227 mg/dl (70-99)
[2024-12-26] MEDS: NOVOLOG FLEXPEN-LOW RESISTANCE 2 UNITS SC (17:59)
[2024-12-26 20:30] VITALS: BP 143/78
[2024-12-26 22:25] VITALS: PULSE 88
[2024-12-26 22:45] LABS: Glucose - Point of Care 216 mg/dl (70-99)
[2024-12-26 23:43] VITALS: BP 136/65
[2024-12-27] MEDS: NSS 1000 IV (02:30)
[2024-12-27 05:14] LABS: Hematocrit 22.7 % (39.0-52.0); Hemoglobin 7.6 g/dL (13.0-18.0); Mean Corp Hgb Conc. 33.5 g/dL (33.0-37.0); Mean Corpuscular Volume 91.9 fL (80.0-94.0); Platelet Count 165 10^3/uL (130-400); Red Cell Dist. Width 14.1 % (11.5-14.5)
[2024-12-27 05:42] LABS: Blood Urea Nitrogen 63 mg/dl (9-20); Calcium 8.4 mg/dl (8.4-10.2); Carbon Dioxide 17 mmol/L (22-30); Chloride 112 mmol/L (98-107); Estimated Creatinine Clearance 17 ml/min; Glucose 125 mg/dl (70-99); Magnesium 1.7 mg/dl (1.6-2.3); Potassium 4.6 mmol/L (3.5-5.1); Sodium 136 mmol/L (135-145); eGFR 10.81
[2024-12-27 06:00] VITALS: BMI 33.1
[2024-12-27 07:30] VITALS: BP 153/66
[2024-12-27 07:33] LABS: Glucose - Point of Care 113 mg/dl (70-99)
--- NOTE | 2024-12-27 08:27 | W.PN.HOSP.TC ---
Today's Communication/Plan
-
see bold
Assessment / Plan
Assessment / Plan
74y M with PMH significant for HTN, DM-II and CKD who presents to ED for evaluation of weakness / unresponsiveness.
DM-II with Hypoglycemia
Weakness / Unresponsiveness secondary to the above
- A1C 6.7. Due to taking glimepiride with worsening renal function
- Recommend permanently discontinue glimepiride
- Patient hyperglycemic on 12/24, IV dextrose IV fluids changed to normal saline
- Resolved, no more hypoglycemia, monitor blood sugars on carb controlled diet, continue Accu-Cheks, sliding scale insulin
MELANIE on CKD
Hyperkalemia
Metabolic Acidosis
Obstructive Uropathy
- Creatinine upon admission is 7.3, baseline creatinine 1.6 on 12/03/2024
- L PCN in place and appears to be draining well.
- Appreciate nephrology input, cap IV fluids, no need for dialysis currently
- Hyperkalemia resolved s/p Lokelma, hold spironolactone
- CT abdomen and pelvis negative for left hydronephrosis
- Patient was supposed to have another surgery at [place] 01/12
- Trend creatinine, trend daily weights, no nephrotoxic drugs/NSAID
Urinary tract infection ruled out
- Patient has CLL, therefore he has a chronic leukocytosis. Urine culture show mixed guy, likely contamination
- Discontinued IV Rocephin
- Status post oral vancomycin for C. difficile prophylaxis
CLL
Anemia of chronic disease
- Iron studies reviewed, likely from anemia of chronic disease
- Appreciate heme-onc input, suspect acute on chronic anemia
- Status post 1 unit packed red blood cells on 12/24/2024 for hemoglobin 6.9
- Hemoglobin much improved, continue to trend, transfuse for hemoglobin less than 7.0
Benign Hypertension
- Continue Coreg 25 mg twice a day, clonidine 0.2 mg twice a day, amlodipine 5 mg twice a day,
- Hold spironolactone given hyperkalemia/ MELANIE.
Coronary artery disease
- Continue aspirin, statin, beta-imtiaz
Obesity due to excess calories
- Affects all aspects of care
Prostate cancer
Obstructive sleep apnea
Gout
DVT Prophylaxis: Subcut heparin
Code Status: Full
Updated daughter Mabel on phone 12/24
Updated daughter Reba on phone 12/27
Total time spent to see the patient on the floor, examine the patient, review data and lab results, discuss treatment plan with patient, nursing staff around 38 minutes.
Physical Exam
General: Obese, no acute distress
HEENT: Normocephalic, Atraumatic, EOMI, MMM
Respiratory: Clear to Auscultation bilaterally
Cardiac: Normal S1/S2, Regular Rate and Rhythm
GI: Soft, Nontender, Nondistended, Normal Bowel Sounds
: L PCN tube w/ clear yellow urine
Extremities: No Clubbing, Cyanosis, or Edema
Neuro: Nonfocal/Grossly Intact
Anticipated Discharge: > 48 hours
Subjective/Interval History
-
Date of Service: December 27, 2024
No acute events. Patient denies pain. Denies chest pain, shortness of breath. No fever, no vomiting
Objective Data
-
Labs:
Laboratory Results
12/27/24
04:38
WBC 19.3 H
Hgb 7.6 L
Hct 22.7 L
Plt Count 165
Sodium 136
Potassium 4.6
Chloride 112 H
Carbon Dioxide 17 L
BUN 63 H
Creatinine 5.3 H*
Glucose 125 H
Calcium 8.4
Vital Signs:
Vital Signs
Temp Pulse Resp BP Pulse Ox
98.7 F 72 16 153/66 97
12/27/24 07:30 12/27/24 07:30 12/27/24 07:30 12/27/24 07:30 12/27/24 07:30
I&O
12/26/24 12/27/24 12/28/24
06:59 06:59 06:59
Intake Total 730 / 730 1979 / 1979
Output Total 2150 / 3100 3700 / 3700
Balance -1420 / -2370 -1720 / -1720
[2024-12-27] MEDS: NOVOLOG FLEXPEN-LOW RESISTANCE SC (08:29)
[2024-12-27] MEDS: CRESTOR 20 MG PO (08:30)
[2024-12-27] MEDS: VITAMIN D3 (cholecalciferol) 25 MCG PO (08:30)
[2024-12-27] MEDS: COREG 25 MG PO ×2 (08:30→20:34)
[2024-12-27] MEDS: FIRVANQ 125 MG PO (08:30)
[2024-12-27] MEDS: LOW STRENGTH ASPIRIN 81 MG PO (08:30)
[2024-12-27] MEDS: CATAPRES 0.2 MG PO ×2 (08:30→20:35)
[2024-12-27] MEDS: NORVASC 5 MG PO ×2 (08:31→20:32)
--- NOTE | 2024-12-27 10:35 | W.PN.NEPH.PH ---
Today's Communication / Plan
-
cap IVF
Assessment/Plan
-
74y M with PMH significant for CKD, obstructive uropathy, DM-II and hypertension who presents to ED complaining of weakness. He was reportedly noted to be hypoglycemic and received dextrose en route to the ED.
He is typically followed at [facility] as well as [place].
He currently has a L PCN in place and is scheduled for more definitive surgery at [facility] in the coming weeks.
Patient notes that he has been on antibiotics recently (completed a course of Bactrim last week according to his med list).
Reviewed records from [facility] he had a creatinine of 1.6 on December 03, 2024 on discharge. The nephrostomy tube was placed on that admission and he had acute kidney injury with a creatinine above 3 at the time. Atrophic R kidney and an
obstructed L kidney due to a hernia.
Patient was tested for C. difficile at [facility] which was negative but he was placed on prophylactic C. difficile while on antibiotic at [facility]
Renal consult for acute kidney injury and metabolic acidosis creatinine of 7
Impression.
Acute kidney injury with a creatinine of 7.3 from 1.6 in December 03, 2024.
Hyperkalemia
Acute metabolic acidosis
Chronic left nephrostomy tube draining.
Leukocytosis
DM2
Plan.
Follow BMP
cap IVF
serologies pending
U prot/creat
-
-
Date of Service: December 27, 2024
CC / HPI / ROS
-
Chief Complaint:
Acute kidney injury
History of Present Illness:
Acute kidney injury with metabolic acidosis with chronic left nephrostomy tube presents with hypoglycemia
Hemoglobin down to 7.6
Platelets stable 165
MELANIE/creatinine improving 5.3
Mild metabolic acidosis 17 persists
Review of Systems:
No chest pain
Nonoliguric
Labs
-
Labs:
WBC 19.3 10^3/uL (4.8-10.8) H 12/27/24 04:38
RBC 2.47 10^6/uL (4.70-6.10) L 12/27/24 04:38
Hgb 7.6 g/dL (13.0-18.0) L 12/27/24 04:38
Hct 22.7 % (39.0-52.0) L 12/27/24 04:38
Plt Count 165 10^3/uL (130-400) 12/27/24 04:38
Sodium 136 mmol/L (135-145) 12/27/24 04:38
Potassium 4.6 mmol/L (3.5-5.1) 12/27/24 04:38
Chloride 112 mmol/L (98-107) H 12/27/24 04:38
Carbon Dioxide 17 mmol/L (22-30) L 12/27/24 04:38
BUN 63 mg/dl (9-20) H 12/27/24 04:38
Creatinine 5.3 mg/dL (0.7-1.3) H* 12/27/24 04:38
eGFR 10.81 12/27/24 04:38
Glucose 125 mg/dl (70-99) H 12/27/24 04:38
Calcium 8.4 mg/dl (8.4-10.2) 12/27/24 04:38
Phosphorus 6.0 mg/dl (2.5-4.5) H 12/27/24 04:38
Albumin 3.5 g/dl (3.5-5.0) 12/23/24 11:19
Physical Exam
-
Vital Signs:
Vital Signs
Temp Pulse Resp BP Pulse Ox
98.7 F 72 16 153/66 97
12/27/24 07:30 12/27/24 08:30 12/27/24 07:30 12/27/24 08:30 12/27/24 07:30
Cardiovascular:: Regular rate and rhythm
Respiratory:: Bilateral: Coarse
Lung Excursion:: Normal
Abdomen:: Nontender and Soft
Bowel Sounds:: Normal
Extremity Edema:: None: Bilateral:
[2024-12-27] MEDS: NSS IV (12:22)
[2024-12-27 12:29] LABS: Glucose - Point of Care 187 mg/dl (70-99)
[2024-12-27] MEDS: NOVOLOG FLEXPEN-LOW RESISTANCE 1 UNITS SC (12:59)
[2024-12-27 15:35] VITALS: BP 136/59
[2024-12-27 16:05] VITALS: BP 139/69
[2024-12-27 17:45] LABS: Glucose - Point of Care 217 mg/dl (70-99)
[2024-12-27] MEDS: NOVOLOG FLEXPEN-LOW RESISTANCE 2 UNITS SC (17:48)
[2024-12-27] MEDS: HEPARIN 5000 UNITS SC (20:36)
[2024-12-27 21:20] LABS: Glucose - Point of Care 223 mg/dl (70-99)
[2024-12-27 22:20] VITALS: PULSE 85
[2024-12-27 23:49] VITALS: BP 139/70
[2024-12-28 03:52] VITALS: PULSE 85
[2024-12-28 06:00] VITALS: BMI 32.2
[2024-12-28 07:35] VITALS: BP 140/70
[2024-12-28 07:56] LABS: Hematocrit 22.9 % (39.0-52.0); Hemoglobin 7.7 g/dL (13.0-18.0); Mean Corp Hgb Conc. 33.6 g/dL (33.0-37.0); Mean Corpuscular Volume 92.7 fL (80.0-94.0); Platelet Count 153 10^3/uL (130-400); Red Cell Dist. Width 13.8 % (11.5-14.5)
[2024-12-28 08:31] LABS: Glucose - Point of Care 34 mg/dl (70-99)
[2024-12-28 08:41] LABS: Glucose - Point of Care 146 mg/dl (70-99)
[2024-12-28 08:45] LABS: Glucose - Point of Care 333 mg/dl (70-99)
[2024-12-28 08:56] LABS: Blood Urea Nitrogen 60 mg/dl (9-20); Calcium 8.8 mg/dl (8.4-10.2); Carbon Dioxide 14 mmol/L (22-30); Chloride 112 mmol/L (98-107); Estimated Creatinine Clearance 16 ml/min; Glucose 136 mg/dl (70-99); Potassium 4.4 mmol/L (3.5-5.1); Sodium 136 mmol/L (135-145); eGFR 10.34
[2024-12-28] MEDS: NOVOLOG FLEXPEN-LOW RESISTANCE SC (09:04)
[2024-12-28] MEDS: NORVASC 5 MG PO ×2 (09:05→21:01)
[2024-12-28] MEDS: LOW STRENGTH ASPIRIN 81 MG PO (09:05)
[2024-12-28] MEDS: VITAMIN D3 (cholecalciferol) 25 MCG PO (09:05)
[2024-12-28] MEDS: CATAPRES 0.2 MG PO ×2 (09:05→21:00)
[2024-12-28] MEDS: CRESTOR 20 MG PO (09:05)
[2024-12-28] MEDS: HEPARIN 5000 UNITS SC ×2 (09:06→20:53)
[2024-12-28] MEDS: COREG 25 MG PO ×2 (09:06→20:51)
--- NOTE | 2024-12-28 09:18 | W.PN.HOSP.TC ---
Today's Communication/Plan
-
see A/P
Assessment / Plan
Assessment / Plan
HPI: 74 yo M with PMH significant for HTN, DM-II, CKD; p/w weakness / unresponsiveness.
A/P:
# DM-II with Hypoglycemia
# Weakness / Unresponsiveness secondary to the above
Due to taking glimepiride with worsening renal function
A1C 6.7.
Recommend permanently discontinue glimepiride
Patient hyperglycemic on 12/24, IV dextrose IV fluids changed to normal saline
Resolved, no more hypoglycemia, monitor blood sugars on carb controlled diet, continue Accu-Cheks, sliding scale insulin
# MELANIE on CKD
# Hyperkalemia
# Metabolic Acidosis
# Obstructive Uropathy
Creatinine on admission at 7.3, baseline creatinine 1.6 on 12/03/2024, SCr today at 5.[address] and appears to be draining well.
Appreciate nephrology input, cap IV fluids, no need for dialysis currently
Hyperkalemia resolved s/p Lokelma, hold spironolactone
CT abdomen and pelvis negative for left hydronephrosis
Patient was supposed to have another surgery at [place] 01/12
Trend creatinine, trend daily weights, no nephrotoxic drugs/NSAID
Start Sodium bicarb
Follow serologies
# Urinary tract infection ruled out
Patient has CLL, therefore he has a chronic leukocytosis. Urine culture show mixed guy, likely contamination
Discontinued IV Rocephin
Status post oral vancomycin for C. difficile prophylaxis
# CLL
# Anemia of chronic disease
Iron studies reviewed, likely from anemia of chronic disease
Appreciate heme-onc input, suspect acute on chronic anemia
Status post 1 unit packed red blood cell transfusion on 12/24/2024 for hemoglobin 6.9
Hemoglobin much improved, continue to trend, transfuse for hemoglobin less than 7.0
# Benign Hypertension
Continue Coreg 25 mg twice a day, clonidine 0.2 mg twice a day, amlodipine 5 mg twice a day,
Hold spironolactone given hyperkalemia/ MELANIE.
# Coronary artery disease
Continue aspirin, statin, beta-imtiaz
# Obesity due to excess calories
Affects all aspects of care
# Prostate cancer
# Obstructive sleep apnea
# Gout
DVT Prophylaxis: Subcut heparin
Code Status: Full
Dispo: HH
DW renal
Anticipated Discharge: 24 - 48 hours
Subjective/Interval History
-
Date of Service: December 28, 2024
Objective Data
-
Labs:
Laboratory Results
12/28/24
07:18
WBC 18.6 H
Hgb 7.7 L
Hct 22.9 L
Plt Count 153
Sodium 136
Potassium 4.4
Chloride 112 H
Carbon Dioxide 14 L*
BUN 60 H
Creatinine 5.5 H*
Glucose 136 H
Calcium 8.8
Vital Signs:
Vital Signs
Temp Pulse Resp BP Pulse Ox
36.7 C 65 16 140/70 95
12/28/24 07:35 12/28/24 09:06 12/28/24 07:35 12/28/24 09:06 12/28/24 07:35
I&O
12/27/24 12/28/24 12/29/24
06:59 06:59 06:59
Intake Total 1979 / 1979 900 / 900
Output Total 3700 / 3700 1875 / 1875
Balance -1720 / -1720 -975 / -975
Review of Systems
-
History Source: Patient
All other systems: Reviewed and negative
Physical Exam
-
General: Well Developed, Well Nourished, No Apparent Distress, Comfortable and Conversant; Negative Respiratory Distress
HEENT: Normocephalic, Atraumatic, Nose Appears Normal and Ears Appear Normal; Negative Oxygen
Respiratory: Clear to Auscultation and Non Labored Respirations; Negative Accessory Resp Muscle Use
Cardiac: Regular Rhythm and S1/S2
GI: Soft, Nontender, Nondistended and Normal Bowel Sounds
Genito-urinary: Nephrostomy Tubes (L )
Skin: Warm and Dry
Neuro: Awake, Alert and Oriented
Psych: Calm and Intact Judgement/Insight
Data Reviewed
-
Labs: Labs Reviewed by me
[2024-12-28] MEDS: SODIUM BICARBONATE 1300 MG PO ×3 (10:27→21:02)
--- NOTE | 2024-12-28 11:00 | W.PN.ONC2 ---
Today's Communication / Plan
-
daily CBC, transfuse prn
OP follow up with Dr. Zarate for continued management of CLL and anemia
Impression
Impression
p/w weakness / unresponsiveness.
MELANIE w/ h/o CKD
Anemia -no evidence of hemolysis with normal haptoglobin
CLL, stage 0, good prognosis
Plan
Plan
Suspect anemia is acute on chronic, related to MELANIE
f/u SPEP/CANDY
would transfuse as clinically indicated
CLL is chronic, hasn't needed treatment. Explains leukocytosis/lymphocytosis
Subjective/Objective
Subjective
no new complaints
Vital Signs:
Vital Signs
Temp Pulse Resp BP Pulse Ox
98.0 F 65 16 140/70 95
12/28/24 07:35 12/28/24 09:06 12/28/24 07:35 12/28/24 09:06 12/28/24 07:35
Lab Results:
Laboratory Data
WBC 18.6 10^3/uL (4.8-10.8) H 12/28/24 07:18
Hgb 7.7 g/dL (13.0-18.0) L 12/28/24 07:18
Plt Count 153 10^3/uL (130-400) 12/28/24 07:18
eGFR 10.34 12/28/24 07:18
Physical Exam
General: Well Developed, Well Nourished and No Apparent Distress
HEENT: Moist Mucous Membranes; Negative Jaundice
Cardiology: Normal Sinus Rhythm
Pulmonary: Clear
GI: Soft; Negative Hepatomegaly or Splenomegaly
Musculoskeletal: No Clubbing, No Cyanosis and No Edema
Neurology: Non Focal, No Lateralizing Symptoms and No Word Finding Difficulty
Hematologic / Lymphatic: No Lymphadenopathy
Psych: Calm
--- NOTE | 2024-12-28 11:01 | W.PN.NEPH.PH ---
Today's Communication / Plan
-
follow labs
add po bicarb
Assessment/Plan
-
74y M with PMH significant for CKD, obstructive uropathy, DM-II and hypertension who presents to ED complaining of weakness. He was reportedly noted to be hypoglycemic and received dextrose en route to the ED.
He is typically followed at [facility] as well as [place].
He currently has a L PCN in place and is scheduled for more definitive surgery at [facility] in the coming weeks.
Patient notes that he has been on antibiotics recently (completed a course of Bactrim last week according to his med list).
Reviewed records from [facility] he had a creatinine of 1.6 on December 03, 2024 on discharge. The nephrostomy tube was placed on that admission and he had acute kidney injury with a creatinine above 3 at the time. Atrophic R kidney and an
obstructed L kidney due to a hernia.
Patient was tested for C. difficile at [facility] which was negative but he was placed on prophylactic C. difficile while on antibiotic at [facility]
Renal consult for acute kidney injury and metabolic acidosis creatinine of 7
Impression.
Acute kidney injury with a creatinine of 7.3 from 1.6 in December 03, 2024.
Hyperkalemia
Acute metabolic acidosis
Chronic left nephrostomy tube draining.
Leukocytosis
DM2
Plan.
MELANIE-cr slightly up at 5.5, non oliguric
encourage po intake and monitor labs
worsening met acidosis -agree to add po bicarb
serologies pending
U PCR 2.7gm/gmo f cr
if cr increases further may need reimaging
monitor h/h-low at 7.7
BP stable on Amlodipine, clonidine and BB
d/w pt
-
-
Date of Service: December 28, 2024
CC / HPI / ROS
-
Chief Complaint:
Acute kidney injury
History of Present Illness:
Acute kidney injury with metabolic acidosis with chronic left nephrostomy tube presents with hypoglycemia
Hemoglobin stable at 7.7
MELANIE/creatinine slightly up at 5.5, non oliguric
Mild metabolic acidosis 14-worse
Review of Systems:
No chest pain or sob
no n/v
no dysuria, also draining from left PCN
Labs
-
Labs:
WBC 18.6 10^3/uL (4.8-10.8) H 12/28/24 07:18
RBC 2.47 10^6/uL (4.70-6.10) L 12/28/24 07:18
Hgb 7.7 g/dL (13.0-18.0) L 12/28/24 07:18
Hct 22.9 % (39.0-52.0) L 12/28/24 07:18
Plt Count 153 10^3/uL (130-400) 12/28/24 07:18
Sodium 136 mmol/L (135-145) 12/28/24 07:18
Potassium 4.4 mmol/L (3.5-5.1) 12/28/24 07:18
Chloride 112 mmol/L (98-107) H 12/28/24 07:18
Carbon Dioxide 14 mmol/L (22-30) L* 12/28/24 07:18
BUN 60 mg/dl (9-20) H 12/28/24 07:18
Creatinine 5.5 mg/dL (0.7-1.3) H* 12/28/24 07:18
eGFR 10.34 12/28/24 07:18
Glucose 136 mg/dl (70-99) H 12/28/24 07:18
Calcium 8.8 mg/dl (8.4-10.2) 12/28/24 07:18
Phosphorus 6.0 mg/dl (2.5-4.5) H 12/27/24 04:38
Albumin 3.5 g/dl (3.5-5.0) 12/23/24 11:19
Physical Exam
-
Vital Signs:
Vital Signs
Temp Pulse Resp BP Pulse Ox
98.0 F 65 16 140/70 95
12/28/24 07:35 12/28/24 09:06 12/28/24 07:35 12/28/24 09:06 12/28/24 07:35
Cardiovascular:: Regular rate and rhythm
Respiratory:: Bilateral: CTA
Lung Excursion:: Normal
Abdomen:: Nontender and Soft
Bowel Sounds:: Normal
Extremity Edema:: None: Bilateral:
Perez Catheter: No
[2024-12-28 11:19] LABS: Glucose - Point of Care 230 mg/dl (70-99)
[2024-12-28] MEDS: NOVOLOG FLEXPEN-LOW RESISTANCE 2 UNITS SC ×2 (12:37→17:50)
--- NOTE | 2024-12-28 13:13 | PTCARENOTE ---
12/28/2024
I met with Mr. Pisano to review diabetes management. He has lucio T2D for years, inpatient due to hypoglycemia. States he became hypoglycemic later in the day, he is not sure what happened and does not remember if he took his DM medications,
consumed food or was physically active. He did mention he is physically active with ADL's and walking his dogs, I educated to eat prior to any exercise. I discussed CGM with alarms for hypoglycemia and hyperglycemia. He will discuss with PCP.
His glucometer is 20 years old, I will request a new glucometer prescription sent to his pharmacy.
I reinforced signs of hyperglycemia, hypoglycemia and hypoglycemia protocol; BS parameters and recommended HbA1c goals. Recommended he eat every 2-3 hours and understand when to take his medications for DM in relation to food intake. Discussed
with Mr. Pisano he was previously on Glimepiride, which is to be taken 30 minutes before a meal but this medication can cause hypoglycemia if taking at the incorrect time. He states he was never informed of this and thinks he takes this at time of
eating. I also educated patient that he may not be prescribed this at discharge and to follow up with PCP post discharge.
Encouraged patient to follow up with his PCP for post d/c appointment and to monitor medication and blood glucose levels. Patient verbalized understanding.
[2024-12-28 15:25] VITALS: BP 136/71
[2024-12-28 17:44] LABS: Glucose - Point of Care 209 mg/dl (70-99)
[2024-12-28 20:39] VITALS: BP 146/72
[2024-12-28 21:35] LABS: Glucose - Point of Care 198 mg/dl (70-99)
[2024-12-28 23:08] VITALS: BP 137/63
[2024-12-28 23:27] LABS: Serine Protease-3, IgG 1 AU/mL (0-19)
[2024-12-29 00:08] LABS: ANA, IgG Reflex to HEp-2 None Detected (None Detected)
[2024-12-29 06:00] VITALS: BMI 32.0
[2024-12-29 07:00] VITALS: BP 138/70
[2024-12-29 07:28] LABS: Blood Urea Nitrogen 67 mg/dl (9-20); Calcium 9.0 mg/dl (8.4-10.2); Carbon Dioxide 17 mmol/L (22-30); Chloride 111 mmol/L (98-107); Estimated Creatinine Clearance 17 ml/min; Glucose 132 mg/dl (70-99); Magnesium 1.9 mg/dl (1.6-2.3); Potassium 4.4 mmol/L (3.5-5.1); Sodium 137 mmol/L (135-145); eGFR 11.06
[2024-12-29 08:22] LABS: Glucose - Point of Care 147 mg/dl (70-99)
[2024-12-29] MEDS: CRESTOR 20 MG PO (08:47)
[2024-12-29] MEDS: VITAMIN D3 (cholecalciferol) 25 MCG PO (08:47)
[2024-12-29] MEDS: NOVOLOG FLEXPEN-LOW RESISTANCE SC (08:47)
[2024-12-29] MEDS: NORVASC 5 MG PO ×2 (08:47→20:59)
[2024-12-29] MEDS: LOW STRENGTH ASPIRIN 81 MG PO (08:47)
[2024-12-29] MEDS: HEPARIN 5000 UNITS SC ×2 (08:48→20:58)
[2024-12-29] MEDS: COREG 25 MG PO ×2 (08:48→20:58)
[2024-12-29] MEDS: SODIUM BICARBONATE 1300 MG PO ×3 (08:48→21:17)
[2024-12-29] MEDS: CATAPRES 0.2 MG PO ×2 (08:48→20:58)
--- NOTE | 2024-12-29 09:35 | PN.DE.MGMTRT ---
Insulin Management
- -
12/29/2024 Diabetes Management Consult
Patient admitted 12/23 with weakness, hypoglycemia; consulted 12/29 for diabetes management. PMH CKD, obstructive uropathy, diabetes, HTN ALFIE, CLL, anemia, prostate CA, gout, CAD. Prior to admission was taking glimepiride 3 mg daily and metformin.
A1C on admission 6.7%, cr 5.2, eGFR 11.06.
Patient is awake alert and oriented able to discuss diabetes care. States he has had a significant weight loss. 380 pounds to 231 pounds. He states he has had diabetes 25+ years and follows with his primary doctor for diabetes care. He requests
new glucose monitor since his is VERY old.
Initially glucose in the 30's.
12/28 Glucose range 146 to 230 receiving low corrective.
12/29 Due to cr and eGFR will start lantus 10 units daily, first dose now and continue low corrective insulin.
Will consult diabetes nurse educator for insulin instruction and new glucose monitor.
Discussed with nurse
Will follow.
Diabetes History
- -
Type of Diabetes: 2
Pre-Admission Diabetes Regimen
12/29/24
05:43
Creatinine 5.2 H*
Lab Results
Hemoglobin A1c 6.7 % (4.0-5.6) H 12/23/24 00:11
Insulin Pump Settings
IP Diabetes Regimen
12/28/24 12/28/24 12/28/24
11:17 17:43 21:28
Glucose
POC Glucose 230 H 209 H 198 H
12/29/24 12/29/24
05:43 08:20
Glucose 132 H
POC Glucose 147 H
Meal type: Breakfast
Amount consumed: 100%
Patient Education
[2024-12-29] MEDS: LANTUS 0.1 UNITS SC (09:52)
--- NOTE | 2024-12-29 10:15 | W.PN.HOSP.TC ---
Today's Communication/Plan
-
see A/P
Assessment / Plan
Assessment / Plan
HPI: 74 yo M with PMH significant for HTN, DM-II, CKD; p/w weakness / unresponsiveness.
A/P:
# DM-II with Hypoglycemia
# Weakness / Unresponsiveness secondary to the above
Hypoglycemia due glimepiride with worsening renal function
A1C 6.7.
Recommend permanently discontinue glimepiride
Patient hyperglycemic on 12/24, IV dextrose IV fluids changed to normal saline
monitor blood sugars on carb controlled diet, continue Accu-Cheks, sliding scale insulin
DM [employer] for management and education
# MELANIE on CKD
# Hyperkalemia
# Metabolic Acidosis
# Obstructive Uropathy
Creatinine on admission at 7.3, baseline creatinine 1.6 on 12/03/2024, SCr today at 5.[address] and appears to be draining well.
Appreciate nephrology input, capped IV fluids, no need for dialysis currently
Hyperkalemia resolved s/p Lokelma, hold spironolactone
CT abdomen and pelvis negative for left hydronephrosis
Patient was supposed to have another surgery at [place] 01/12
Trend creatinine, trend daily weights, no nephrotoxic drugs/NSAID
added Sodium bicarb
Follow serologies
Renal following
# Urinary tract infection ruled out
Patient has CLL, therefore he has a chronic leukocytosis. Urine culture show mixed guy, likely contamination
Discontinued IV Rocephin
Status post oral vancomycin for C. difficile prophylaxis
# CLL
# Anemia of chronic disease
Iron studies reviewed, likely from anemia of chronic disease
Appreciate heme-onc input, suspect acute on chronic anemia
Status post 1 unit packed red blood cell transfusion on 12/24/2024 for hemoglobin 6.9
Hemoglobin much improved, continue to trend, transfuse for hemoglobin less than 7.0
# Benign Hypertension
Continue Coreg 25 mg twice a day, clonidine 0.2 mg twice a day, amlodipine 5 mg twice a day,
Hold spironolactone given hyperkalemia/MELANIE.
# Coronary artery disease
Continue aspirin, statin, beta-imtiaz
# Obesity due to excess calories
Affects all aspects of care
# Prostate cancer
# Obstructive sleep apnea
# Gout
DVT Prophylaxis: Subcut heparin
Code Status: Full
Dispo: HH
Anticipated Discharge: 24 - 48 hours
Subjective/Interval History
-
Date of Service: December 29, 2024
Objective Data
-
Labs:
Laboratory Results
12/29/24
05:43
Sodium 137
Potassium 4.4
Chloride 111 H
Carbon Dioxide 17 L
BUN 67 H
Creatinine 5.2 H*
Glucose 132 H
Calcium 9.0
Vital Signs:
Vital Signs
Temp Pulse Resp BP Pulse Ox
36.2 C 57 20 138/70 99
12/29/24 07:00 12/29/24 08:47 12/29/24 07:00 12/29/24 08:47 12/29/24 07:00
I&O
12/28/24 12/29/24 12/30/24
06:59 06:59 06:59
Intake Total 900 / 900
Output Total 1875 / 1875 3850 / 3850 500 / 500
Balance -975 / -975 -3850 / -3850 -500 / -500
Review of Systems
-
History Source: Patient
All other systems: Reviewed and negative
Physical Exam
-
General: Well Developed, Well Nourished, No Apparent Distress, Comfortable and Conversant; Negative Respiratory Distress
HEENT: Normocephalic, Atraumatic, Nose Appears Normal and Ears Appear Normal; Negative Oxygen
Respiratory: Clear to Auscultation and Non Labored Respirations; Negative Accessory Resp Muscle Use
Cardiac: Regular Rhythm and S1/S2
GI: Soft, Nontender, Nondistended and Normal Bowel Sounds
Genito-urinary: Nephrostomy Tubes (L )
Skin: Warm and Dry
Neuro: Awake, Alert and Oriented
Psych: Calm and Intact Judgement/Insight
Data Reviewed
-
Labs: Labs Reviewed by me and Discussed with Family
--- NOTE | 2024-12-29 11:38 | CM ---
Reviewed the chart notes and spoke with the patient at the bedside. Patient anticipates being discharged to home with resumption of [facility] services. Referral previously sent via [facility] and accepted. CM continues to be available to
patient/family and is monitoring medical plan for needs at discharge.
Plan: Discharge to home when medically stable with resumption of [facility].
VN fax: [phone]
[2024-12-29 11:50] LABS: Glucose - Point of Care 250 mg/dl (70-99)
[2024-12-29] MEDS: NOVOLOG FLEXPEN-LOW RESISTANCE 3 UNITS SC (12:42)
[2024-12-29 15:00] VITALS: BP 141/68
[2024-12-29 15:00] LABS: Albumin 2.90 g/dL (3.75-5.01); Free Kappa Light Chains,Quant 98.19 mg/L (3.30-19.40); Free Lambda Light Chains,Quant 54.72 mg/L (5.71-26.30); Immunofixation Electrophoresis IFE Done; Kappa/Lambda Fr Light Ratio 1.79 (0.26-1.65); Total Protein-Electrophoresis 5.5 g/dL (6.3-8.2)
--- NOTE | 2024-12-29 15:52 | PTCARENOTE ---
12/29/2024 DIABETES EDUCATION CONSULT
I met with Gunnar, he is newly prescribed Lantus and Novolog. I educated on onset of action, checking glucose prior to administering Novolog and injecting 15 minutes before a meal, and duration of action. Advised patient do not take Novolog if not
eating unless directed by provider as this works on meals and can cause hypoglycemia. I provided education that Lantus is long acting, lasts 24 hours and is to be administered at the same time once a daily (unless otherwise directed by provider).
I provided a demonstration on proper insulin injection technique, discuss site rotation, reviewed proper storage and disposal (of needle). He provided a successful repeat demonstration. Spoke with RN, provided sample pen needles to assist patient
with self administration while inpatient.
I provided education on proper set up and use of Contour Next glucometer with glucose of 257 1 hour post prandial. Provided sample kit, requested diabetes testing supplies to be ordered upon discharge.
[2024-12-29 16:56] VITALS: BP 139/71; PULSE 62; O2SAT 99
[2024-12-29 17:10] VITALS: BMI 32.0
--- NOTE | 2024-12-29 17:20 | W.PN.NEPH.PH ---
Today's Communication / Plan
-
follow labs
Assessment/Plan
-
74y M with PMH significant for CKD, obstructive uropathy, DM-II and hypertension who presents to ED complaining of weakness. He was reportedly noted to be hypoglycemic and received dextrose en route to the ED.
He is typically followed at [facility] as well as [place].
He currently has a L PCN in place and is scheduled for more definitive [facility] in the coming weeks.
Patient notes that he has been on antibiotics recently (completed a course of Bactrim last week according to his med list).
Reviewed records from [facility] he had a creatinine of 1.6 on December 03, 2024 on discharge. The nephrostomy tube was placed on that admission and he had acute kidney injury with a creatinine above 3 at the time. Atrophic R kidney and an
obstructed L kidney due to a hernia.
Patient was tested for C. difficile at [facility] which was negative but he was placed on prophylactic C. difficile while on antibiotic at [facility]
Renal consult for acute kidney injury and metabolic acidosis creatinine of 7
Impression.
Acute kidney injury with a creatinine of 7.3 from 1.6 in December 03, 2024.
possible ckd3
Hyperkalemia
Acute metabolic acidosis
Chronic left nephrostomy tube draining.
Leukocytosis
DM2
Plan.
MELANIE-cr better at 5.2, non oliguric
encourage po intake and monitor labs
met acidosis -improving on po bicarb
serologies pending
U PCR 2.7gm/gmo f cr
if cr increases further may need reimaging
monitor h/h-low at 7.7
BP stable on Amlodipine, clonidine and BB
d/w pt
-
-
Date of Service: December 29, 2024
CC / HPI / ROS
-
Chief Complaint:
Acute kidney injury
History of Present Illness:
Acute kidney injury with metabolic acidosis with chronic left nephrostomy tube presents with hypoglycemia
Hemoglobin stable at 7.7, no cbc today
MELANIE/creatinine slightly down at 5.2, non oliguric
Mild metabolic acidosis better at 17
Review of Systems:
No chest pain or sob
no n/v
draining from left PCN
Labs
-
Labs:
WBC 18.6 10^3/uL (4.8-10.8) H 12/28/24 07:18
RBC 2.47 10^6/uL (4.70-6.10) L 12/28/24 07:18
Hgb 7.7 g/dL (13.0-18.0) L 12/28/24 07:18
Hct 22.9 % (39.0-52.0) L 12/28/24 07:18
Plt Count 153 10^3/uL (130-400) 12/28/24 07:18
Sodium 137 mmol/L (135-145) 12/29/24 05:43
Potassium 4.4 mmol/L (3.5-5.1) 12/29/24 05:43
Chloride 111 mmol/L (98-107) H 12/29/24 05:43
Carbon Dioxide 17 mmol/L (22-30) L 12/29/24 05:43
BUN 67 mg/dl (9-20) H 12/29/24 05:43
Creatinine 5.2 mg/dL (0.7-1.3) H* 12/29/24 05:43
eGFR 11.06 12/29/24 05:43
Glucose 132 mg/dl (70-99) H 12/29/24 05:43
Calcium 9.0 mg/dl (8.4-10.2) 12/29/24 05:43
Phosphorus 6.0 mg/dl (2.5-4.5) H 12/27/24 04:38
Albumin 3.5 g/dl (3.5-5.0) 12/23/24 11:19
Physical Exam
-
Vital Signs:
Vital Signs
Temp Pulse Resp BP Pulse Ox
97.1 F 57 20 138/70 96
12/29/24 07:00 12/29/24 08:47 12/29/24 07:00 12/29/24 08:47 12/29/24 09:00
Cardiovascular:: Regular rate and rhythm
Respiratory:: Bilateral: CTA
Lung Excursion:: Normal
Abdomen:: Nontender and Soft
Bowel Sounds:: Normal
Extremity Edema:: +1: Bilateral:
Perez Catheter: No
[2024-12-29] MEDS: NOVOLOG FLEXPEN-LOW RESISTANCE 5 UNITS SC (17:21)
[2024-12-29 17:30] LABS: Glucose - Point of Care 350 mg/dl (70-99)
[2024-12-29 23:14] VITALS: BP 121/66
[2024-12-30 05:34] VITALS: BMI 32.2
[2024-12-30 07:25] VITALS: BP 131/65
[2024-12-30 07:25] LABS: Glucose - Point of Care 122 mg/dl (70-99)
[2024-12-30 07:29] LABS: Blood Urea Nitrogen 65 mg/dl (9-20); Calcium 8.9 mg/dl (8.4-10.2); Carbon Dioxide 19 mmol/L (22-30); Chloride 111 mmol/L (98-107); Estimated Creatinine Clearance 17 ml/min; Glucose 108 mg/dl (70-99); Potassium 4.4 mmol/L (3.5-5.1); Sodium 137 mmol/L (135-145); eGFR 11.06
--- NOTE | 2024-12-30 07:36 | PN.DE.MGMTRT ---
Insulin Management
- -
12/30/2024 Diabetes Management Consult Follow up
Patient admitted 12/23 with weakness, hypoglycemia; consulted 12/29 for diabetes management. PMH CKD, obstructive uropathy, diabetes, HTN ALFIE, CLL, anemia, prostate CA, gout, CAD. Prior to admission was taking glimepiride 3 mg daily and metformin.
A1C on admission 6.7%, cr 5.2, eGFR 11.06.
Patient is awake alert and oriented able to discuss diabetes care. States he has had a significant weight loss. 380 pounds to 231 pounds. He states he has had diabetes 25+ years and follows with his primary doctor for diabetes care. He requests
new glucose monitor since his is VERY old.
Initially glucose in the 30's.
12/29 Due to cr and eGFR lantus 10 units daily started, continued low corrective insulin. Glucose range 132 to 350.
12/30 Cr 5.2, eGFR 11.06. Will start 5 units novolog AC with low corrective, continue lantus 10 units in AM.
Diabetes nurse educator has provided education on insulin instruction and new glucose monitor.
Discussed with nurse
Will follow.
Diabetes History
- -
Type of Diabetes: 2 requiring insulin
Pre-Admission Diabetes Regimen
12/30/24
06:04
Creatinine 5.2 H*
Lab Results
Hemoglobin A1c 6.7 % (4.0-5.6) H 12/23/24 00:11
Insulin Pump Settings
IP Diabetes Regimen
12/29/24 12/29/24 12/29/24
08:20 11:49 17:20
Glucose
POC Glucose 147 H 250 H 350 H
12/30/24 12/30/24
06:04 07:24
Glucose 108 H
POC Glucose 122 H
Meal type: Lunch
Meal type: Breakfast
Amount consumed: 100%
Amount consumed: 100%
Patient Education
--- NOTE | 2024-12-30 08:20 | W.PN.HOSP.TC ---
Addendum entered and electronically signed by Anjana Woods MD 12/30/24 14:14:
total DC time 40 min
Addendum entered and electronically signed by Anjana Woods MD 12/30/24 12:49:
# MELANIE unclear etiology
Addendum entered and electronically signed by Anjana Woods MD 12/30/24 12:37:
# Metabolic Encephalopathy, resolved
# Chronic Kidney Disease stage 5
Addendum entered and electronically signed by Anjana Woods MD 12/30/24 11:31:
discussed with daughter extensively on the phone.
DW RN
DW CM
Original Note:
Today's Communication/Plan
-
see A/P
Assessment / Plan
Assessment / Plan
HPI: 74 yo M with PMH significant for HTN, DM-II, CKD; p/w weakness / unresponsiveness.
A/P:
# DM-II with Hypoglycemia POA 2/2 glimepiride with worsening renal function
# Weakness / Unresponsiveness secondary to the above
A1C 6.7.
Cont carb controlled diet
DM MINE ENGINEERING SUPERINTENDENT on board for management and education
Started lantus 10 units daily
cont ISS coverage
# MELANIE on CKD
# Hyperkalemia resolved s/p Lokelma, hold spironolactone
# Metabolic Acidosis
# Obstructive Uropathy
Creatinine on admission at 7.3, baseline creatinine 1.6 on 12/03/2024, SCr today at 5.2 which appears to be new baseline
L PCN in place and appears to be draining well.
Appreciate nephrology input, no need for dialysis currently
Hyperkalemia resolved s/p Lokelma, hold spironolactone
CT abdomen and pelvis negative for left hydronephrosis
Patient was supposed to have another surgery at [place] 01/12
Trend creatinine, trend daily weights, no nephrotoxic drugs/NSAID
Check follow up BMP in 1 week after DC, result to PCP/renal
added Sodium bicarb
Noted serologies [place]/Lambda light chains elevated, discussed with renal
Renal following
# Urinary tract infection ruled out
Patient has CLL, therefore he has a chronic leukocytosis. Urine culture show mixed guy, likely contamination
Discontinued IV Rocephin
Status post oral vancomycin for C. difficile prophylaxis
# CLL
# Anemia of chronic disease
Iron studies reviewed, likely from anemia of chronic disease
Appreciate heme-onc input, suspect acute on chronic anemia
Status post 1 unit packed red blood cell transfusion on 12/24/2024 for hemoglobin 6.9
Hemoglobin much improved, continue to trend, transfuse for hemoglobin less than 7.0
# Benign Hypertension
Continue Coreg 25 mg twice a day, clonidine 0.2 mg twice a day, amlodipine 5 mg twice a day,
Hold spironolactone given hyperkalemia/MELANIE.
# Coronary artery disease
Continue aspirin, statin, beta-imtiaz
# Obesity due to excess calories
Affects all aspects of care
# Prostate cancer
# Obstructive sleep apnea
# Gout
DVT Prophylaxis: Subcut heparin
Code Status: Full
Dispo: HH
DW RN
Anticipated Discharge: Today
Subjective/Interval History
-
Date of Service: December 30, 2024
Objective Data
-
Labs:
Laboratory Results
12/30/24
06:04
Sodium 137
Potassium 4.4
Chloride 111 H
Carbon Dioxide 19 L
BUN 65 H
Creatinine 5.2 H*
Glucose 108 H
Calcium 8.9
Vital Signs:
Vital Signs
Temp Pulse Resp BP Pulse Ox
36.5 C 60 18 121/66 100
12/29/24 23:14 12/29/24 23:14 12/29/24 23:14 12/29/24 23:14 12/29/24 23:14
I&O
12/29/24 12/30/24 12/31/24
06:59 06:59 06:59
Intake Total 480 / 480
Output Total 3850 / 3850 1230 / 1230
Balance -3850 / -3850 -750 / -750
Review of Systems
-
History Source: Patient
All other systems: Reviewed and negative
Physical Exam
-
General: Well Developed, Well Nourished, No Apparent Distress, Comfortable and Conversant; Negative Respiratory Distress
HEENT: Normocephalic, Atraumatic, Nose Appears Normal and Ears Appear Normal; Negative Oxygen
Respiratory: Clear to Auscultation and Non Labored Respirations; Negative Accessory Resp Muscle Use
Cardiac: Regular Rhythm and S1/S2
GI: Soft, Nontender, Nondistended and Normal Bowel Sounds
Genito-urinary: Nephrostomy Tubes (L )
Skin: Warm and Dry
Neuro: Awake, Alert and Oriented
Psych: Calm and Intact Judgement/Insight
Data Reviewed
-
Labs: Labs Reviewed by me
[2024-12-30] MEDS: LANTUS 0.1 UNITS SC (08:38)
[2024-12-30] MEDS: NOVOLOG FLEXPEN-LOW RESISTANCE SC (08:38)
[2024-12-30] MEDS: SODIUM BICARBONATE 1300 MG PO (08:39)
[2024-12-30] MEDS: CRESTOR 20 MG PO (08:39)
[2024-12-30] MEDS: LOW STRENGTH ASPIRIN 81 MG PO (08:41)
[2024-12-30] MEDS: VITAMIN D3 (cholecalciferol) 25 MCG PO (08:41)
[2024-12-30] MEDS: NORVASC 5 MG PO (08:42)
[2024-12-30] MEDS: COREG 25 MG PO (08:42)
[2024-12-30] MEDS: HEPARIN 5000 UNITS SC (08:43)
[2024-12-30] MEDS: CATAPRES 0.2 MG PO (08:43)
[2024-12-30] MEDS: NOVOLOG FLEXPEN 5 UNITS SC ×2 (08:44→12:59)
--- NOTE | 2024-12-30 10:21 | CM ---
Addendum entered by Mercedes García RN 12/30/24 11:18:
CM spoke with the patient's daughters (Carol) via telephone. Discussed their concerns for the patient's noncompliance with medications and diet. Discuss that patient will have VN/PT/OT at discharge. Discussed SNF and HALF-WAY options.
Discussed that the patient would need to agree and it would be private pay. Per daughters, they understand patient is not at that point. Discussed POA and Advanced Directives. CM provided packets to the patient for review with family at home.
Attending updated.
Original Note:
Reviewed the chart notes and spoke with the patient at the beside. IMM reviewed. Patient's friend will provide transportation home today. CM continues to be available to patient/family and is monitoring medical plan for needs at discharge.
Plan: Discharge to home with resumption of [facility] VN services.
VN fax: [phone]
[2024-12-30 12:09] LABS: Glucose - Point of Care 177 mg/dl (70-99)
[2024-12-30] MEDS: NOVOLOG FLEXPEN-LOW RESISTANCE 1 UNITS SC (12:18)
[2024-12-30] MEDS: NOVOLOG FLEXPEN SC (12:19)
--- NOTE | 2024-12-30 12:21 | PN.CDI ---
CDI
- -
CDI:
Physician Documentation Request
Admit Date: 12/23/24 04:37
Dear Doctor Peggy,
Please review the following and provide your response in the progress notes.
Clinical Indicators:
Pt admitted with MELANIE /Diabetes with hypoglycemia
Documented per ED, ' 74-year-old male patient was found unresponsive at his apartment, presenting with light-headedness. He received D5 saline en route to the emergency department, which resulted in improved mental status
Documented Progress notes 12/28-12/30,' DM-II with Hypoglycemia Weakness / Unresponsiveness secondary to the aboveDue to taking glimepiride with worsening renal function...'
Pt care note 12/23 @ 0632,' received pt from ED at 0605. Pt aaox2, unable to recall the year. ...'
Based on the above, could you clarify in the Progress Notes and Discharge Summary which, if any of the following, is the most likely etiology of the confusion/altered mental status.
Metabolic Encephalopathy
Due to Diabetes with hypoglycemia only
Other ( please specify)
Use of terms such as suspected, likely, concern for, or probable (associated with a specific diagnosis that is being evaluated, monitored, or treated as if it exists) are acceptable and can be coded in the inpatient setting, when documented at the
time of discharge.
Thank you,
Lala Mobley RN
CDI Specialist
[place] [facility]
Please use your independent medical judgment in providing your response.
--- NOTE | 2024-12-30 12:29 | PN.CDI ---
CDI
- -
CDI:
Physician Documentation Request
Admit Date: 12/23/24 04:37
Dear Doctor Peggy,
Please review the following and provide your response in the progress notes.
Clinical Indicators:
Pt admitted with MELANIE /Diabetes with hypoglycemia
Progress note 12/30,' Creatinine on admission at 7.3, baseline creatinine 1.6 on 12/03/2024, SCr today at 5.2 which appears to be new baseline ...'
12/29/24 12/30/24
05:43 06:04
Creatinine 5.2 H* 5.2 H*
eGFR 11.06 11.06
Please provide the suspected stage of CKD with the new baseline above :
Stages of Chronic Kidney Disease*
Level Description GFR
G1 Normal or High >90
G2 Mildly decreased 60-89
G3a Mildly to moderately decreased 45-59
G3b Moderately to severely decreased 30-44
G4 Severely decreased 15-29
G5 Kidney failure <15
Use of terms such as suspected, likely, concern for, or probable (associated with a specific diagnosis that is being evaluated, monitored, or treated as if it exists) are acceptable and can be coded in the inpatient setting, when documented at the
time of discharge.
Thank you,
Lala Mobley RN
CDI Specialist
[place] [employer]
Please use your independent medical judgment in providing your response.
*Source: Kidney Disease: Improving Global Outcomes (KDIGO) 2012
--- NOTE | 2024-12-30 12:33 | PN.CDI ---
CDI
- -
CDI:
Physician Documentation Request
Admit Date: 12/23/24 04:37
Dear Doctor ,
Please review the following and provide your response in the progress notes.
Clinical Indicators:
Pt admitted with MELANIE /Diabetes with hypoglycemia
Progress note 12/30, ' obstructive Uropathy...L PCN in place and appears to be draining well... CLL...Noted serologies [place]/Lambda light chains elevated, discussed with renal ...'
Please provide the suspected Etiology of the documented MELANIE:
Due to Obstructive Uropathy
Due to CLL/Obstructive Uropathy
Other ( please specify)
Use of terms such as suspected, likely, concern for, or probable (associated with a specific diagnosis that is being evaluated, monitored, or treated as if it exists) are acceptable and can be coded in the inpatient setting, when documented at the
time of discharge.
Thank you,
Lala Mobley RN
CDI Specialist
[place] [employer]
Please use your independent medical judgment in providing your response.
[2024-12-30 13:34] VITALS: BP 121/66
--- NOTE | 2024-12-30 14:05 | W.DCSUMMARY ---
Discharge Summary
Discharge Data
Date of Admission: 12/23/24
Date of Discharge: 12/30/24
-
Pending Results: No
Hospital Course
Principal Diagnosis:
# DM-II with Hypoglycemia POA 2/2 glimepiride with worsening renal function
# Weakness / Unresponsiveness secondary to the above
# MELANIE on CKD stage 5 with Metabolic Acidosis
# Hyperkalemia resolved s/p Lokelma, hold further spironolactone
Chronic Diagnoses:�
# CLL
# Anemia of chronic disease. He received 1 unit PRBC transfusion on 12/24/2024 for hemoglobin 6.9
# Benign Hypertension. BP stable on Coreg 25 mg twice daily, clonidine 0.2 mg twice daily, amlodipine 5 mg twice daily.
# Coronary artery disease
# Obesity due to excess calories
# Prostate cancer
# Obstructive sleep apnea
# Gout
Consultations:�
Diabetes nurse practitioner
Nephrology
Oncology
Procedures:�
None
Clinical course:�
This is a 74 yo M with PMH significant for HTN, DM-II, CKD; p/w weakness / unresponsiveness.
Problem 1:
# DM-II with Hypoglycemia POA 2/2 glimepiride with worsening renal function.
# Weakness / Unresponsiveness secondary to the above.
His hemoglobin A1c was at 6.7%.
He has been informed to continue with carb controlled diet.
He can stop further metformin and glimepiride.
Diabetes nurse practitioner was consulted for both management and education.
He was started with insulin Lantus 10 units daily, and lispro 5 units AC.
Problem 2:
# MELANIE on CKD stage 5 with Metabolic Acidosis.
# Hyperkalemia resolved s/p Lokelma, stopped further spironolactone.
His creatinine on admission was at 7.3, which trended down to around 5.2 on the day of discharge (this appears to be his new baseline).
He has a left percutaneous nephrostomy tube which appears to be draining well.
He was seen by nephrology, and given he is NOT oliguric, there is no need for urgent dialysis.
He can check follow up BMP in 1 week after DC, result to his PCP/efficiency miner blasting.
Sodium bicarb 1300 mg 3 times daily was added this admission which he can continue going forward.
Of note, his serum [place]/Lambda light chains were noted to be elevated.
He has been informed to follow-up closely with nephrology outpatient following discharge.
As for the rest of his medical problems, they were stable during his hospital stay.
Discharge Plan
-
Patient Disposition: Home with Home Care
Discharge Diagnosis/Procedures: # Diabetes with Hypoglycemia due to glimepiride with worsening renal function;
# Weakness / Unresponsiveness secondary to the above;
# Acute on chronic kidney disease (creatinine at 5.2 on discharge);
# Hyperkalemia (resolved), stopped spironolactone;
# Metabolic Acidosis (started sodium bicarbonate);
Condition: Fair
Diet: As tolerated, Low Sodium and Diabetic, Carb Controlled
Activity: As tolerated
Driving Restrictions: As prior to admission
Blood Work: BMP in 1 week, result to PCP/efficiency miner blasting
Referrals:
Leonel Elias, DO [Active, Nephrology] - in two to three weeks
UNKNOWN - PT DOES,NOT KNOW [Family Provider] - in less than 1 week
Additional Discharge Medication Instructions: Stop spironolactone.
Stop metformin and glimepiride.
We have added Sodium bicarb, continue to take.
We have added insulin Lantus 10 units daily, and Lispro 5 units with each meal
Prescriptions:
New
sodium bicarbonate 650 mg Tablet
1,300 mg PO TID Qty: 180 0RF
(DME) Contour Next Test Strips Strip
Qty: 100 1RF
Rx Instructions:
Test 3 times per day As Directed
(DME) lancets [Color Lancets] 21 gauge Misc
Qty: 100 1RF
Rx Instructions:
Test 3 times per day As Directed
insulin lispro [Humalog KwikPen Insulin] 100 unit/mL Insulin Pen
5 unit SC AC Qty: 5 1RF
Rx Instructions:
Take 5 units with each meal HOLD if you do not consume meal
insulin glargine [Lantus Solostar U-100 Insulin] 100 unit/mL (3 mL) Insulin Pen
See Rx Instructions .ROUTE .COMPLEX Qty: 5 1RF
Rx Instructions:
10 unit subcutaneously
Daily @ 0800
(DME) pen needle, diabetic [Kajal 2nd Gen Pen Needle] 32 gauge x ' Needle
Qty: 200 1RF
Rx Instructions:
For use with prefilled insulin pens As Directed
Continued
carvedilol 25 mg Tablet
25 mg PO BID
amlodipine 5 mg Tablet
5 mg PO BID
clonidine HCl 0.2 mg Tablet
0.2 mg PO BID
aspirin 81 mg Tablet,Chewable
81 mg PO DAILY
rosuvastatin 20 mg Tablet
20 mg PO DAILY
cholecalciferol (vitamin D3) 25 mcg (1,000 unit) Tablet
25 mcg PO DAILY
omega 5-xlp-krx-fish oil [Fish Oil] 1,200 (144-216) mg Capsule
1 cap PO BID
Discontinued
spironolactone 25 mg Tablet
25 mg PO DAILY
glimepiride 2 mg Tablet
3 mg PO DAILY
Discharge Orders:
Discharge Patient (As Directed); Ordered 12/30/24
Ordered By: Anjana Woods
Discharge Date and Time
Print Language: INDONESIAN
--- NOTE | 2024-12-30 16:34 | W.PN.NEPH.PH ---
Today's Communication / Plan
-
DC
Assessment/Plan
-
74y M with PMH significant for CKD, obstructive uropathy, DM-II and hypertension who presents to ED complaining of weakness. He was reportedly noted to be hypoglycemic and received dextrose en route to the ED.
He is typically followed at [facility] as well as [facility].
He currently has a L PCN in place and is scheduled for more definitive surgery at [facility] in the coming weeks.
Patient notes that he has been on antibiotics recently (completed a course of Bactrim last week according to his med list).
Reviewed records from [facility] he had a creatinine of 1.6 on December 03, 2024 on discharge. The nephrostomy tube was placed on that admission and he had acute kidney injury with a creatinine above 3 at the time. Atrophic R kidney and an
obstructed L kidney due to a hernia.
Patient was tested for C. difficile at [facility] which was negative but he was placed on prophylactic C. difficile while on antibiotic at [facility]
Renal consult for acute kidney injury and metabolic acidosis creatinine of 7
Impression.
Acute kidney injury with a creatinine of 7.3 from 1.6 in December 03, 2024.
possible ckd3
Hyperkalemia
Acute metabolic acidosis
Chronic left nephrostomy tube draining.
Leukocytosis
DM2
Plan.
MELANIE-cr stable at 5.2, non oliguric
Will need blood work next week
Continue bicarbonate
serologies unremarkable
He will require follow-up with nephrology. He has seen the [facility] previously.
I discussed with him that he also will likely require dialysis in the future
d/w pt
-
-
Date of Service: December 30, 2024
CC / HPI / ROS
-
Chief Complaint:
Acute kidney injury
History of Present Illness:
Acute kidney injury with metabolic acidosis with chronic left nephrostomy tube presents with hypoglycemia
Hemoglobin stable at 7.7, no cbc today
MELANIE/creatinine stable at 5.2, non oliguric
Mild metabolic acidosis better at 19
Review of Systems:
No chest pain or sob
no n/v
draining from left PCN
Labs
-
Labs:
WBC 18.6 10^3/uL (4.8-10.8) H 12/28/24 07:18
RBC 2.47 10^6/uL (4.70-6.10) L 12/28/24 07:18
Hgb 7.7 g/dL (13.0-18.0) L 12/28/24 07:18
Hct 22.9 % (39.0-52.0) L 12/28/24 07:18
Plt Count 153 10^3/uL (130-400) 12/28/24 07:18
Sodium 137 mmol/L (135-145) 12/30/24 06:04
Potassium 4.4 mmol/L (3.5-5.1) 12/30/24 06:04
Chloride 111 mmol/L (98-107) H 12/30/24 06:04
Carbon Dioxide 19 mmol/L (22-30) L 12/30/24 06:04
BUN 65 mg/dl (9-20) H 12/30/24 06:04
Creatinine 5.2 mg/dL (0.7-1.3) H* 12/30/24 06:04
eGFR 11.06 12/30/24 06:04
Glucose 108 mg/dl (70-99) H 12/30/24 06:04
Calcium 8.9 mg/dl (8.4-10.2) 12/30/24 06:04
Phosphorus 6.0 mg/dl (2.5-4.5) H 12/27/24 04:38
Albumin 3.5 g/dl (3.5-5.0) 12/23/24 11:19
Physical Exam
-
Vital Signs:
Vital Signs
Temp Pulse Resp BP Pulse Ox
97.6 F 58 14 121/66 98
12/30/24 13:34 12/30/24 13:34 12/30/24 13:34 12/30/24 13:34 12/30/24 13:34
Cardiovascular:: Regular rate and rhythm
Respiratory:: Bilateral: Coarse
Lung Excursion:: Normal
Abdomen:: Nontender and Soft
Bowel Sounds:: Normal
Extremity Edema:: +1: Bilateral:
== END 2024-12-30 14:53 | disposition home health service (06) | DRG 682 ==
LOC: 2 NORTH 04:37
PROVIDERS: Family Medicine; Internal Medicine Hematology & Oncology; Nurse Practitioner Gerontology; Specialist; ADMITTING PHYSICIAN Hospitalist; ATTENDING PHYSICIAN Internal Medicine; EMERGENCY PHYSICIAN Student in an Organized Health Care Education/Training Program; OTHER PHYSICIAN Internal Medicine Nephrology
DX: N17.9 Acute kidney failure, unspecified (principal); G93.41 Metabolic encephalopathy; C91.10 Chronic lymphocytic leukemia of B-cell type not having achieved remission; E87.21 Acute metabolic acidosis; I12.0 Hypertensive chronic kidney disease with stage 5 chronic kidney disease or end stage renal disease; E11.22 Type 2 diabetes mellitus with diabetic chronic kidney disease; N18.5 Chronic kidney disease, stage 5; E87.5 Hyperkalemia; I25.10 Atherosclerotic heart disease of native coronary artery without angina pectoris; E66.09 Other obesity due to excess calories; Z68.32 Body mass index [BMI] 32.0-32.9, adult; E11.649 Type 2 diabetes mellitus with hypoglycemia without coma; T38.3X5A Adverse effect of insulin and oral hypoglycemic [antidiabetic] drugs, initial encounter
CPT/HCPCS: 74176; 80048; 80053; 81003; 81015; 82533; 82570; 82607; 82728; 82746; 82784; 82947; 82962; 83010; 83036; 83516; 83521; 83540; 83550; 83615; 83735; 84100; 84132; 84155; 84156; 84165; 84443; 85025; 85027; 85045; 86038; 86063; 86160; 86334; 86850; 86900; 86901; 86920; 87086; 93005; 94640; 94660; 96361; 96374; 96375; 97116; 97163; 97166; 97530; 97535; 99291; J1610; P9016